=== PATIENT | female | born 1975 | race Caucasian/White ===

== ENCOUNTER 2016-07-15 19:11 | Emergency (ER) | payer OTHER ==
[2016-07-15] MEDS ORDERED: Ketorolac INJ* 60 MG/2 ML VIAL IV PUSH ONE (22:19)
[2016-07-15] MEDS ORDERED: diPHENhydraMINE IV* 50 MG in NS 0.9% 50 ML* 50 ML IVPB ONE (22:20)
[2016-07-15] MEDS ORDERED: PROCHLORPERAZINE INJ 5 MG/ML 2 ML VIAL IV PRN (22:20)
[2016-07-15] MEDS ORDERED: NS 0.9% 1000 ML* 1,000 ML IV ONE (22:21)
--- NOTE | 2016-07-15 22:55 | ED ---
Headache - HPI Summary HPI Summary: Patient here with a 2 day history of migraine with aura and photophobia. PMHx of migraines (some with aura, some without), denies nuchal rigidity, denies sudden onset, not worst of life, no trauma. She states she took her triptan this morning with no alleviation of symptoms. Pain is 8/10 and is constant. Patient notes to scintillating scotoma all day yesterday and today. C/o accompanying nausea with no vomiting. Pain is diffuse, similar to her previous migraines. denies fever, denies blurry vision or double vision. - History Of Current Complaint Chief Complaint: EDHeadache Stated Complaint: MIGRAINE Hx Obtained From: Patient Onset/Duration: Gradual Onset, Started days ago - 2 days ago Initially Headache Was: Moderate Currently Pain Is: Current Pain Scale(0-10)= - 8, Moderate Timing: Constant Character: Throbbing Location of Headache: Frontal Aggravating Factor: Nothing Allevating Factors: Nothing Associated Signs And Symptoms: Nausea - Risk Factors SAH Risk Factors: Negative Meningitis Risk Factors: Negative SDH Risk Factors: Negative Temporal Arteritis Risk Factors: Negative - Allergies/Home Medications Allergies/Adverse Reactions: Allergies Allergy/AdvReac Type Severity Reaction Status Date / Time No Known Allergies Allergy Verified 07/15/16 19:45 PMH/Surg Hx/FS Hx/Imm Hx Previously Healthy: Yes Infectious Disease History: No Infectious Disease History: Denies: Traveled Outside the [place] in Last 30 Days - Social History Occupation: Employed Full-time Lives: With Family Hx Substance Use: No Substance Use Type: Reports: None Hx Tobacco Use: No Smoking Status (MU): Never Smoked Tobacco Review of Systems - ROS Summary Review of Systems Summary: Constitutional: The patient denies fever, CONTE. HEENT: ~Head: Patient complains of migraine. scintillating scotoma Eyes: ~The patient denies diplopia, blurry vision. positive for photophobia Cardiovascular: ~The patient denies chest pain, palpitations, syncope, night cramps, or orthostasis. ~ Respiratory: ~The patient denies cough, sputum production, hemoptysis, dyspnea, wheezing. ~ Gastrointestinal: ~ The patient denies odynophagia, abd pain. Positive for nausea. Muscles: The patient denies myalgia, strain or weakness. ~ Joints: ~The patient denies arthralgia and/or arthritis. ~ Neurologic: ~The patient denies loss of consciousness, or seizure. Dermatologic: ~The patient denies hyperpigmentation, rash, or photosensitivity. All Other Systems Reviewed And Are Negative: Yes Physical Exam - Summary Physical Exam Summary: Appearance: WDW, in pain distress Skin: Soft dry skin, no lesions. Nailbeds pink with no cyanosis or clubbing. Eyes: LORENA, EOMI, Conjunctiva pink with no redness or exudates. Mouth: Dentition without lesions. Moist mucosa Neck: Full range of motion. Thyroid not palpable. Trachea at midline. No lymphadenopathy. Pulm: Chest symmetrical expansion. No deformities on posterior chest wall. Lungs clear to auscultation and percussion, without adventitious sounds. CV: No JVD. No deformities on anterior chest wall. Heart sounds-RRR, Normal S1 and single S2. No S3, S4, rubs, or murmurs. Carotids 2+ bilaterally without bruits. . Abd: No scars, inspection unremarkable. Bowel sounds normoactive. Musculoskeletal: Full range of motion. No deformities noted. Pulses full and equal. No calf tenderness Neuro: Motor strength is 5/5 in upper and lower extremities bilaterally. A&OX3 Psych: Logical, coherent Triage Information Reviewed: Yes Vital Signs On Initial Exam: Initial Vitals Temp Pulse Resp BP Pulse Ox 99.1 F 85 18 105/67 100 07/15/16 19:43 07/15/16 19:43 07/15/16 19:43 07/15/16 19:43 07/15/16 19:43 Vital Signs Reviewed: Yes Appearance: Positive: Well-Appearing, No Pain Distress, Well-Nourished Diagnostics - Vital Signs Vital Signs Temp Pulse Resp BP Pulse Ox 07/15/16 19:43 99.1 F 85 18 105/67 100 - Laboratory Lab Statement: Any lab studies that have been ordered have been reviewed, and results considered in the medical decision making process. Headache Course/Dx - Course Course Of Treatment: Patient was assessed. Physical exam performed. 1 L given. Compazine, benadryl and toradol given. patient reassessed with improvement of symptoms. migraine similiar to previous migraines. not sudden in onset, not worst of life, not different than other CONTE, no visual symptoms. low suspician for SAH. follow up with PCP for recurrent migraines as needed. Return precautions given. Assessment/Plan: Follow up with PCP. Script sent to pharmacy. - Diagnoses Differential Diagnosis/HQI/PQRI: Migraine, Sinus Headache, Tension Headache Provider Diagnoses: Migraine Is Visit Related: No - Physician Notifications Instructed by Provider To: Have Pt Call For Appt. Admit/Transition Orders Completed By ED Provider: No Discharge - Discharge Plan Condition: Stable Disposition: HOME Prescriptions: Ketorolac TAB (NF) [Toradol TAB (NF)] 10 mg PO Q6H #20 tab MDD 4 Prochlorperazine TAB* [Compazine Tab*] 10 mg PO Q6H PRN #10 tab MDD 40 PRN Reason: Nausea Patient Education Materials: Migraine Headache (ED) Referrals: Abigail Pa MD [Primary Care Provider] - Additional Instructions: Follow up with PCP. Script sent to pharmacy. Come back to ED if symptoms fail to improve or worsen, vomiting occurs or fever develops. Take home medications at first onset of migraine. If this regimen fails to abort the migraine, you may try: compazine 10mg, 800mg ibuprofen and 50mg benadryl
[2016-07-15] MEDS ORDERED: Prochlorperazine TAB* 10 MG PO ONE (23:41)
[2016-07-15 23:53] VITALS: BP 103/52
== END 2016-07-15 23:52 | disposition home or self-care (01) ==
LOC: ED 19:11
DX: G43.909 Migraine, unspecified, not intractable, without status migrainosus (principal); H53.149 Visual discomfort, unspecified
CPT/HCPCS: 96365; 96374; 96375; 99282; J0780; J1200; J1885; Q0164

== ENCOUNTER 2018-04-18 22:33 | Inpatient (IN) | payer OTHER ==
[2018-04-18] MEDS ORDERED: NS 0.9% 1000 ML* 1,000 ML IV ONE (23:21)
[2018-04-18] MEDS ORDERED: Ketorolac INJ* 30 MG/ML 1 ML VIAL IV PUSH ONE (23:24)
--- NOTE | 2018-04-18 23:26 | ED ---
Shortness of Breath - HPI Summary HPI Summary: This patient is a 43 year old F presenting to [facility] with a chief complaint of SOB since 07:00 today. The patient rates the pain 7/10 in severity. Patient reports cough, aching joint pain, and headache. Patient denies fever. She has been driving all day. She has no PMHx of asthma and does not smoke cigarettes. - History of Current Complaint Chief Complaint: EDUpperRespComplaint Time Seen by Provider: 04/18/18 23:11 Hx Obtained From: Patient Onset/Duration: Lasting Hours - 07:00 this morning, Still Present Associated Signs & Symptoms: Cough (Nonproductive), Fever - Denies - Allergy/Home Medications Allergies/Adverse Reactions: Allergies Allergy/AdvReac Type Severity Reaction Status Date / Time No Known Allergies Allergy Verified 04/18/18 22:40 Home Medications: Home Medications Eletriptan HBr 20 mg PO ONCE PRN 04/19/18 [History Confirmed 04/19/18] Lifitegrast [Xiidra] 1 drop BOTH EYES BID 04/19/18 [History Confirmed 04/19/18] Liothyronine TAB* [Cytomel TAB*] 5 mcg PO DAILY 04/19/18 [History Confirmed 02/27] Montelukast Sodium TAB* [Singulair 5 mg TAB*] 1 tab PO DAILY 04/19/18 [History Confirmed 04/19/18] Naproxen 500 mg tab 1 tab PO ONCE PRN 04/19/18 [History Confirmed 04/19/18] PMH/Surg Hx/FS Hx/Imm Hx Endocrine/Hematology History: Reports: Hx Thyroid Disease - Hypothyroidism Respiratory History: Denies: Hx Asthma Neurological History: Reports: Hx Migraine - Immunization History Date of Tetanus Vaccine: utd Date of Influenza Vaccine: none Infectious Disease History: No Infectious Disease History: Denies: Traveled Outside the [place] in Last 30 Days - Family History Known Family History: Positive: Hypertension, Diabetes - Social History Occupation: Employed Full-time Lives: With Family Alcohol Use: Occasionally Hx Substance Use: No Substance Use Type: Reports: None Hx Tobacco Use: No Smoking Status (MU): Never Smoked Tobacco Review of Systems Negative: Fever Positive: Shortness Of Breath, Cough Positive: Other - "aching joint pain" Positive: Headache All Other Systems Reviewed And Are Negative: Yes Physical Exam - Summary Physical Exam Summary: VITAL SIGNS: Reviewed. GENERAL: Patient is a well-developed and nourished FEMALE who is lying comfortable in the stretcher. Patient is not in any acute respiratory distress. HEAD AND FACE: No signs of trauma. No ecchymosis, hematomas or skull depressions. No sinus tenderness. EYES: PERRLA, EOMI x 2, No injected conjunctiva, no nystagmus. EARS: Hearing grossly intact. Ear canals and tympanic membranes are within normal limits. MOUTH: Oropharynx within normal limits. NECK: Supple, trachea is midline, no adenopathy, no JVD, no carotid bruit, no c- spine tenderness, neck with full ROM. CHEST: Symmetric, no tenderness at palpation LUNGS: Decreased breath sounds over right base. No wheezing or crackles. CVS: Regular rate and rhythm, S1 and S2 present, no murmurs or gallops appreciated. ABDOMEN: Soft, non-tender. No signs of distention. No rebound no guarding, and no masses palpated. Bowel sounds are normal. EXTREMITIES: FROM in all major joints, no edema, no cyanosis or clubbing. NEURO: Alert and oriented x 3. No acute neurological deficits. Speech is normal and follows commands. SKIN: Dry and warm Triage Information Reviewed: Yes Vital Signs On Initial Exam: Initial Vitals Temp Pulse Resp BP Pulse Ox 98.8 F 100 20 105/60 93 04/18/18 22:35 04/18/18 22:35 04/18/18 22:35 04/18/18 22:35 04/18/18 22:35 Vital Signs Reviewed: Yes Diagnostics - Vital Signs Vital Signs Temp Pulse Resp BP Pulse Ox 04/18/18 22:35 98.8 F 100 20 105/60 93 - Laboratory Result Diagrams: 04/19/18 00:02 04/19/18 00:02 Lab Statement: Any lab studies that have been ordered have been reviewed, and results considered in the medical decision making process. - Radiology Chest X-Ray Radiology Interpretation Completed By: ED Physician - Read 00:40. Bilateral interstitial infiltrate, bilateral perfusion (right more than left), all consistent with CHF. Pending official report. - EKG 23:38 Cardiac Rate: NL - 87 BPM EKG Rhythm: Sinus Rhythm ST Segment: Normal EKG Interpretation: Normal axis. Normal interval. No ischemic changes. Course/Dx - Course Course Of Treatment: This patient is a 43 year old F presenting to [facility] with a chief complaint of SOB since 07:00 today. The patient rates the pain 7/10 in severity. Patient reports cough, aching joint pain, and headache. Patient denies fever. She has been driving all day. She has no PMHx of asthma and does not smoke cigarettes. Chest X-Ray showed: Bilateral interstitial infiltrate, bilateral perfusion (right more than left), all consistent with CHF. EKG was normal. Patient dx with CHF and will be admitted by Dr. Kate García, hospitalist. - Diagnoses Provider Diagnoses: CHF (congestive heart failure) - Physician Notifications Discussed Care of Patient With: Kate García - Hospitalist Time Discussed With Above Provider: 01:34 Instructed by Provider To: Admit As Inpatient Discharge - Sign-Out/Discharge Documenting (check all that apply): Patient Departure - Admit - Discharge Plan Condition: Stable Disposition: ADMITTED TO [facility] Referrals: Abigail Pa MD [Primary Care Provider] - - Attestation Statements Document Initiated by Scribe: Yes Documenting Scribe: Elie Choudhary Provider For Whom Scribe is Documenting (Include Credential): Rebecca Alvarez MD Scribe Attestation: Elie Nuñez, scrgustavo for Rebecca Alvarez MD on 04/19/18 at 0134.
[2018-04-19 00:14] LABS: ABS Basophils 0 10^3/ul (0-0.2); ABS Eosinophils 0.1 10^3/ul (0-0.6); ABS Lymphocytes 0.6 10^3/ul (1.0-4.8); ABS Monocytes 0.5 10^3/ul (0-0.8); ABS Neutrophils 9.2 10^3/ul (1.5-7.7); ABS Nucleated RBC 0 10^3/ul; Eosinophil % 0.5 % (0-6); Hematocrit 36 % (35-47); Hemoglobin 11.8 g/dl (12.0-16.0); Lymphocyte % 5.8 % (25-47); Mean Corpuscular HGB Conc 33 g/dl (31-36); Mean Corpuscular Hemoglobin 30 pg (27-31); Mean Corpuscular Volume 93 fL (80-97); Mean Platelet Volume 9.5 um3 (7.4-10.4); Nucleated Red Blood Cells % 0; Platelet Count 137 10^3/ul (150-450); Red Blood Count 3.89 10^6/ul (4.00-5.40); Red Cell Distribution Width 14 % (10.5-15); White Blood Count 10.4 10^3/ul (3.5-10.8)
[2018-04-19] MEDS ORDERED: Furosemide IV* 10 MG/ML 2 ML VIAL (20 MG) IV SLOW PU ONE ×2 (00:23→12:43)
[2018-04-19 00:32] LABS: EGFR Non-African American 100.3 (>60)
[2018-04-19 00:41] LABS: INR 1.02 (0.77-1.02)
[2018-04-19] MEDS ORDERED: Naproxen TAB* 250 MG PO PRN (02:11)
[2018-04-19] MEDS ORDERED: ELETRIPTAN HBR 20 MG PO PRN (02:11)
[2018-04-19] MEDS ORDERED: Prochlorperazine TAB* 10 MG PO PRN (02:11)
[2018-04-19] MEDS ORDERED: NAPROXEN 500 MG PO PRN (02:11)
[2018-04-19] MEDS ORDERED: SUMAtriptan SQ* 6 MG/0.5 ML VIAL SUBCUT ONE (03:45)
[2018-04-19 06:25] LABS: EGFR Non-African American 106.1 (>60)
[2018-04-19] MEDS ORDERED: NS 0.9% 1000 ML* 1,000 ML IV SCH (07:45)
[2018-04-19] MEDS: Acetaminophen TAB* 325 MG PO PRN ×3 (08:03→17:53)
[2018-04-19] MEDS ORDERED: Acetaminophen TAB* 325 MG PO ONE (08:03)
[2018-04-19] MEDS ORDERED: PROCHLORPERAZINE INJ 5 MG/ML 2 ML VIAL IV PRN (08:05)
[2018-04-19] MEDS ORDERED: Albuterol 2.5 MG/3 ML NEB.SOL* (0.083%) INH PRN (08:06)
--- NOTE | 2018-04-19 08:06 | RAD ---
Indication: Shortness of breath, myalgias. Comparison: No relevant prior exams available on the [facility]. Technique: Upright AP 0010 hours Report: Upper normal heart size. Prominent ill-defined central pulmonary vasculature with perihilar opacities and diffuse prominence of the interstitial markings with subtle thickened peripheral interlobular septa. Moderate RIGHT and small LEFT dependent pleural effusions with proportional basilar atelectasis. Negative for pneumothorax. IMPRESSION: #. The constellation of findings is most consistent with pulmonary edema. R0
--- NOTE | 2018-04-19 10:19 | HP ---
CC: Abigail Pa MD * HISTORY AND PHYSICAL: DATE OF ADMISSION: 04/19/18 TIME OF EVALUATION: 7:40 a.m. PRIMARY CARE PROVIDER: Abigail Pa MD CHIEF COMPLAINT: Shortness of breath. HISTORY OF PRESENT ILLNESS: Mrs. Bingham is a 43-year-old lady with a past medical history of hypothyroidism and migraines who presented to the emergency room with complaints of shortness of breath and body aches. The patient states that she was feeling well a couple of days ago. She went with her to [facility], they were walking around and she had some shortness of breath while walking around. This was followed by chills and body aches. She went back to the hotel, took some [id number] medication and felt initially a little better but as the day went by, she continued to feel poorly. They returned to [place] and the patient states that 1 hour after her return, she stated that she felt worse, so she came to the emergency room for further evaluation. While in the ED, the patient was noted to be tachycardic and also developed a fever. She continues to have respiratory symptoms. She denies chest pain, palpitations, nausea, vomiting, urinary or bowel symptoms. The patient denies sick contacts. She did not receive her flu vaccine yet this season. PAST MEDICAL HISTORY: 1. Hypothyroidism. 2. Migraine. MEDICATIONS: 1. Eletriptan 10 mg p.o. once as needed for migraines. 2. Lifitegrast 1 drop to both eyes b.i.d. 3. Cytomel 5 mcg p.o. daily. 4. Singulair 5 mg p.o. daily. 5. Naproxen 500 mg p.o. daily as needed for migraine. 6. Compazine 10 mg p.o. q.6 hours p.r.n. nausea and vomiting. ALLERGIES: No known drug allergies. FAMILY HISTORY: Father has hypertension, grandmother had heart disease. SOCIAL HISTORY: There is no history of tobacco, alcohol or drug use. 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 REVIEW OF SYSTEMS: A 14-point review of systems was performed and all the pertinent negatives were found in the HPI. PHYSICAL EXAMINATION GENERAL: The patient is a pleasant lady sitting up in the ED stretcher, appears to be uncomfortable. VITAL SIGNS: Temperature 102.6, heart rate is 120, respiratory rate is 35, oxygen saturation is 94% on 2 L, blood pressure is 113/66. CHEST: Breath sounds bilaterally coarse, decreased in the right base. CVS: Normal S1, S2. Regular rate and rhythm. ABDOMEN: Soft. Bowel sounds are present. EXTREMITIES: No edema. NEUROLOGIC: She is alert and oriented x3. Able to move all 4 extremities. LABORATORY AND IMAGING DATA: The patient had a CBC that showed WBC of 10.4, hemoglobin of 11.8, hematocrit 36, platelets of 137,000 with 88% neutrophils. INR is 1.02. D-dimer is 410. Chemistry showed sodium of 131, potassium of 3.7 , chloride of 101, bicarb of 21, BUN of 9, creatinine of 0.6, glucose of 108, lactic acid of 1, calcium of 8.7. LFTs are normal. CRP 64. Troponin is 0.03. BNP 566. Chest x-ray not officially read but the patient has bilateral pleural effusions right greater than left. EKG done on 04/18/18 at 2338 showed sinus rhythm at 87 beats per minute with left atrial enlargement. No ST-T changes. RSR pattern in V1, new when compared to her prior EKG from 2016. ASSESSMENT/PLAN: Mrs. Bingham is a 43-year-old female with past medical history of hypothyroidism and migraines who presented to the emergency room with complaints of shortness of breath, found to have sepsis secondary to probable influenza. 1. Sepsis. The patient's presentation is compatible with sepsis with fever, tachypnea and tachycardia. Considering the sudden onset of her symptoms and rapid progression, I suspect the patient likely has influenza. 2. Probable influenza. The patient will be started empirically on Tamiflu and she will receive symptomatic treatment. At this point, she requires IV fluids and have had increased oxygen needs. I am going to change her admission order to the intensive care unit, so she can be close monitored and she may need Vapotherm to decrease her work of breathing. Influenza rapid test was ordered and is pending at the time of this dictation. 3. Hypothyroidism. Will continue Cytomel. 4. Migraines. Will continue triptans as needed. 5. DVT prophylaxis: The patient has a score of 3 on the DVT prophylaxis risk assessment guide and she will be started on subcutaneous heparin. 6. Code status is full. TIME SPENT: Approximately 50 minutes were spent with patient interview, medical records review, physical examination to complete this admission, more than half of this time was spent [id number] with the patient and coordination of care. [id number]/CPS #: [id number] MTDD
--- NOTE | 2018-04-19 10:33 | ECHO ---
Patient: [facility] Rec#: [id number] : 1975 Date: 04/19/2018 Age: 43y Height: 165.1 cm / 65.0 in Weight: 49.9 kg / 110.0 lbs Sex: F BSA: 1.53 Room#: [facility] Admit Date#: 04/19/2018 Type: Inpatient Referring: Estephania Hinds MD Reading: Roger Jimenez MD Data Warehouse Manager: Abbey Evans GAY CC: Abigail Pa MD Transthoracic Echocardiogram Indication: Dyspnea/ Pericardial effusion BP: 111/73 HR: 100 Rhythm: Tachycardia Findings History: Hypothyroidism. Technical Comments: The study is technically difficult. Study done with HOB at 90 degrees and a slight turn to the left. Completed at 1012. Left Ventricle: The left ventricular chamber size is decreased. Global left ventricular wall motion and contractility are within normal limits. There is normal left ventricular systolic function. The estimated ejection fraction is 55-60%. Abnormal left ventricular diastolic function is observed. Left Atrium: The left atrium is moderately dilated. Right Ventricle: The right ventricle is mildly dilated. The right ventricular global systolic function is mildly to moderately reduced. Right Atrium: The right atrial cavity size is normal. Aortic Valve: The aortic valve is trileaflet. There is no evidence of aortic regurgitation. There is no evidence of aortic stenosis. Mitral Valve: The mitral valve leaflets appear rheumatic. The mitral valve leaflets are mildly thickened. Mitral valve leaflet mobility is moderately restricted. There is systolic bowing of the mitral valve without evidence of prolapse. There is no evidence of mitral regurgitation. There is moderate to severe mitral stenosis. Tricuspid Valve: The tricuspid valve leaflets are normal. There is moderate tricuspid regurgitation. The tricuspid regurgitant jet is wall impinging. The right ventricular systolic pressure is estimated to be 85-90 mmHg. There is evidence of severe pulmonary hypertension. There is no tricuspid stenosis. Pulmonic Valve: There is trace to mild pulmonic regurgitation. There is no pulmonic stenosis. Pericardium: A trivial pericardial effusion is visualized. There are no signs of significant hemodynamic compromise. There is a circumferential pericardial effusion. A bilateral pleural effusion is present. There is a large pleural effusion. Aorta: There is no dilatation of the ascending aorta. There is no dilatation of the aortic arch. There is no dilation of the aortic root. Pulmonary Artery: The main pulmonary artery appears normal. Venous: The inferior vena cava is dilated. There is a greater than 50% respiratory change in the inferior vena cava dimension. Summary: There was not any prior study for comparison. Conclusions Global left ventricular wall motion and contractility are within normal limits. There is normal left ventricular systolic function. The estimated ejection fraction is 55-60%. The right ventricle is mildly dilated. The right ventricular global systolic function is mildly to moderately reduced. There is no evidence of aortic stenosis. There is systolic bowing of the mitral valve without evidence of prolapse. The mitral valve leaflets appear rheumatic. Mitral valve leaflet mobility is moderately restricted. There is systolic bowing of the mitral valve without evidence of prolapse. There is moderate to severe mitral stenosis. There is no evidence of mitral regurgitation. There is moderate tricuspid regurgitation. There is evidence of severe pulmonary hypertension. The right ventricular systolic pressure is estimated to be 85-90 mmHg. A trivial pericardial effusion is visualized. There are no signs of significant hemodynamic compromise. A bilateral pleural effusion is present. Asites is present Measurements Name Value Normal Range RVIDd (AP) 2D 2.7 cm (0.9 - 2.6) RVDdMajor (2D) 4.5 cm (2.2 - 4.4) RAd ISD 4CH 4.2 cm (3.4 - 4.9) RA (A4C)W 4.3 cm (2.9 - 4.6) IVSd (2D) 0.9 cm (0.6 - 1) LVPWd (2D) 0.6 cm (0.6 - 1) LVIDd (2D) 3.2 cm (3.6 - 5.4) LVIDs (2D) 23 cm - LV FS (2D) 29 % (25 - 45) Aortic Annulus 1.5 cm (1.4 - 2.6) Ao root diameter (2D) 3 cm (2.1 - 3.5) Ascending Ao 2.8 cm (2.1 - 3.4) Aortic arch 2 cm (1.8 - 3.4) Descending Ao 0.6 cm - LA dimension (AP) 2D 4.4 cm (2.3 - 3.8) LAd ISD 4CH 6.3 cm (2.9 - 5.3) LA ISD 4CH W 4.9 cm (2.5 - 4.5) Name Value Normal Range LA ESV SP 4CH (A/L) 91 ml - LA ESV SP 2CH (A/L) 83 ml - LA ESV BP (A/L) 87 ml - LA ESV BP (A/L) index 56.71 ml/m2 - LA ESV SP 4CH (MOD) 84 ml - LA ESV SP 2CH (MOD) 80 ml - Name Value Normal Range MV E-wave Vmax 3 m/sec - MV deceleration time 201 msec - MV A-wave Vmax 3 m/sec - MV E:A ratio 1 ratio - LV septal e' Vmax 0.04 m/sec - LV lateral e' Vmax 0.04 m/sec - LV E:e' septal ratio 75 ratio - LV E:e' lateral ratio 75 ratio - Name Value Normal Range AV Vmax 1.3 m/sec - AV VTI 20 cm - AV peak gradient 6.25 mmHg - AV mean gradient 2.89 mmHg - LVOT diameter 1.7 cm - LVOT Vmax 1.2 m/sec - LVOT VTI 20.3 cm - LVOT peak gradient 5.62 mmHg - LVOT mean gradient 2.35 mmHg - Name Value Normal Range MV Vmax 3.5 m/sec - MV VTI 94 cm - MV peak gradient 47.7 mmHg - MV mean gradient 28 mmHg - MV PHT 54 msec - MVA (PHT) 4 cm2 - MVA (continuity VTI) 0.5 cm2 - Name Value Normal Range TR Vmax 4.4 m/sec - TR peak gradient 78 mmHg - RAP 8 mmHg - RVSP 86 mmHg - IVC diameter 2.2 cm - Name Value Normal Range PV Vmax 0.9 m/sec - PV peak gradient 3.4 mmHg -
[2018-04-19] MEDS: Heparin VIAL(*) 5000 UNITS/ML VIAL (FIVE THOUSAND) SUBCUT SCH ×3 (10:47→22:03)
[2018-04-19] MEDS: Lifitegrast [Xiidra] 1 DROP BOTH EYES SCH ×2 (10:52→22:04)
[2018-04-19] MEDS: Liothyronine TAB* 5 MCG PO SCH (11:05)
[2018-04-19] MEDS: Oseltamivir CAP* 75 MG CAP PO SCH ×2 (11:05→22:04)
[2018-04-19] MEDS: Montelukast Sodium TAB* 5 MG PO SCH (11:05)
[2018-04-19] MEDS ORDERED: Iodixanol* (CONTRAST) 320 MG/ML 100 ML SDV IV ONE (11:06)
--- NOTE | 2018-04-19 11:56 | RAD ---
HISTORY: Dyspnea, r/o PE. COMPARISONS: None TECHNIQUE: Multiple contiguous axial CT scans of the chest were obtained after the administration of nonionic intravenous contrast, timed to the pulmonary arterial phase of contrast enhancement.. Coronal and sagittal multiplanar reformations are also submitted for review. FINDINGS: NECK AND THYROID: The lower neck and thyroid are unremarkable. CHEST WALL: There is no lower cervical, axillary, or supraclavicular lymphadenopathy by size criteria. HEART AND PERICARDIUM: The heart is unremarkable. AORTA AND PULMONARY VASCULATURE: There is no pulmonary arterial filling defect to suggest pulmonary embolism. There is no linear filling defect within the aorta to suggest aortic dissection. MEDIASTINUM: There is no mediastinal lymphadenopathy by size criteria. NIYA: There is no hilar lymphadenopathy by size criteria. AIRWAY AND ESOPHAGUS: The airway is unremarkable, without endobronchial filling defect. The esophagus is grossly normal. LUNG PARENCHYMA: There is multifocal ground glass opacification and consolidation throughout both lungs. There is mixed compressive atelectasis and consolidation of the right lower lobe. There is compressive atelectasis of the left lower lobe. There is interlobular septal thickening along the lung apices bilaterally. PLEURA: There are large bilateral pleural effusions. UPPER ABDOMEN: The upper abdomen is unremarkable. BONES AND SOFT TISSUES: Mild degenerative changes are noted. OTHER: None. IMPRESSION: 1. LARGE BILATERAL PLEURAL EFFUSIONS WITH MULTIFOCAL AIRSPACE DISEASE THROUGHOUT BOTH LUNGS. 2. MILD PULMONARY INTERSTITIAL EDEMA. 3. NO PULMONARY ARTERIAL FILLING DEFECT TO SUGGEST PULMONARY EMBOLISM.
[2018-04-19] MEDS: Ibuprofen TAB* 600 MG PO PRN (13:06)
[2018-04-19] MEDS: Levofloxacin 750 MG IVPREMIX(* 750 MG/150 ML BAG IVPB SCH (13:55)
--- NOTE | 2018-04-19 14:43 | CONSULT ---
Consult Consult: PCCM Consult CC: Shortness of breath HPI: 43F with hypothyroid, migraines presents with shortness of breath. The patient was recently in [place] and she began to have bodyaches. She first noticed her symptoms when walking around. She took other counter medications and felt slightly better but then became felt worse. She ccame back to [place] and came to the ER where she had a chest xray which showed bilateral pleural effusions and pulmonary edema. She was also febrile. TTE was done showing mitral stenosis with pulmonary hypertension. CTA chest did not show any PE but did show multifocal airspace opacities. She was started on Abx and lasix. She reports dry cough. 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 FamHx - htn ROS - as per HPI PE Vital Signs: Temp Pulse Resp BP Pulse Ox 101.4 F 103 25 93/61 96 04/19/18 12:47 04/19/18 14:00 04/19/18 14:00 04/19/18 14:00 04/19/18 14:00 Gen - Acutely ill HEENT - ncat, eomi, perrl Neck - mild jvd CV - s1/s2, +murmur, tachy Lungs - dec bs bilaterally ABd - soft, nt, nd Ext - no edema Neuro - non-focal Labs Laboratory Results - last 24 hr 04/19/18 04/19/18 04/19/18 00:02 00:02 00:02 WBC 10.4 RBC 3.89 L Hgb 11.8 L Hct 36 MCV 93 MCH 30 MCHC 33 RDW 14 Plt Count 137 L MPV 9.5 Neut % (Auto) 88.7 H Lymph % (Auto) 5.8 L [place] % (Auto) 4.7 Eos % (Auto) 0.5 Baso % (Auto) 0.3 Absolute Neuts (auto) 9.2 H Absolute Lymphs (auto) 0.6 L Absolute Monos (auto) 0.5 Absolute Eos (auto) 0.1 Absolute Basos (auto) 0 Absolute Nucleated RBC 0 Nucleated RBC % 0 INR (Anticoag Therapy) 1.02 APTT D-Dimer, Quantitative 410 H Sodium 131 L Potassium 3.7 Chloride 101 Carbon Dioxide 21 L Anion Gap 9 BUN 9 Creatinine 0.64 Est GFR ( Amer) 121.4 Est GFR (Non-Af Amer) 100.3 BUN/Creatinine Ratio 14.1 Glucose 108 H Lactic Acid Calcium 8.7 Total Bilirubin 0.80 AST 24 ALT 36 Alkaline Phosphatase 75 Total Creatine Kinase 64 Troponin I 0.03 C-Reactive Protein 64.44 H B-Natriuretic Peptide Total Protein 6.8 Albumin 4.0 Globulin 2.8 Albumin/Globulin Ratio 1.4 Beta HCG, Quant < 0.60 Influenza A (Rapid) Influenza B (Rapid) 04/19/18 04/19/18 04/19/18 00:02 00:02 00:02 WBC RBC Hgb Hct MCV MCH MCHC RDW Plt Count MPV Neut % (Auto) Lymph % (Auto) [place] % (Auto) Eos % (Auto) Baso % (Auto) Absolute Neuts (auto) Absolute Lymphs (auto) Absolute Monos (auto) Absolute Eos (auto) Absolute Basos (auto) Absolute Nucleated RBC Nucleated RBC % INR (Anticoag Therapy) APTT 31.7 D-Dimer, Quantitative Sodium Potassium Chloride Carbon Dioxide Anion Gap BUN Creatinine Est GFR ( Amer) Est GFR (Non-Af Amer) BUN/Creatinine Ratio Glucose Lactic Acid 1.0 Calcium Total Bilirubin AST ALT Alkaline Phosphatase Total Creatine Kinase Troponin I C-Reactive Protein B-Natriuretic Peptide 566 H Total Protein Albumin Globulin Albumin/Globulin Ratio Beta HCG, Quant Influenza A (Rapid) Influenza B (Rapid) 04/19/18 04/19/18 04/19/18 05:53 07:53 08:15 WBC RBC Hgb Hct MCV MCH MCHC RDW Plt Count MPV Neut % (Auto) Lymph % (Auto) [place] % (Auto) Eos % (Auto) Baso % (Auto) Absolute Neuts (auto) Absolute Lymphs (auto) Absolute Monos (auto) Absolute Eos (auto) Absolute Basos (auto) Absolute Nucleated RBC Nucleated RBC % INR (Anticoag Therapy) APTT D-Dimer, Quantitative Sodium 136 Potassium 3.6 Chloride 104 Carbon Dioxide 24 Anion Gap 8 BUN 8 Creatinine 0.61 Est GFR ( Amer) 128.3 Est GFR (Non-Af Amer) 106.1 BUN/Creatinine Ratio 13.1 Glucose 102 H Lactic Acid 0.9 Calcium 8.7 Total Bilirubin AST ALT Alkaline Phosphatase Total Creatine Kinase Troponin I C-Reactive Protein B-Natriuretic Peptide Total Protein Albumin Globulin Albumin/Globulin Ratio Beta HCG, Quant Influenza A (Rapid) Negative Influenza B (Rapid) Negative Imaging CXR 04/19 IMPRESSION: #. The constellation of findings is most consistent with pulmonary edema. CTA Chest 04/19 1. LARGE BILATERAL PLEURAL EFFUSIONS WITH MULTIFOCAL AIRSPACE DISEASE THROUGHOUT BOTH LUNGS. 2. MILD PULMONARY INTERSTITIAL EDEMA. 3. NO PULMONARY ARTERIAL FILLING DEFECT TO SUGGEST PULMONARY EMBOLISM TTE 04/19 Conclusions Global left ventricular wall motion and contractility are within normal limits. There is normal left ventricular systolic function. The estimated ejection fraction is 55-60%. The right ventricle is mildly dilated. The right ventricular global systolic function is mildly to moderatelyreduced. There is no evidence of aortic stenosis. There is systolic bowing of the mitral valve without evidence ofprolapse. The mitral valve leaflets appear rheumatic. Mitral valve leaflet mobility is moderately restricted. There is systolic bowing of the mitral valve without evidence ofprolapse. There is moderate to severe mitral stenosis. There is no evidence of mitral regurgitation. There is moderate tricuspid regurgitation. There is evidence of severe pulmonary hypertension. The right ventricular systolic pressure is estimated to be 85-90 mmHg. A trivial pericardial effusion is visualized. There are no signs of significant hemodynamic compromise. A bilateral pleural effusion is present. Asites is present Impression 43F with hypothyroid, migraines presents with dyspnea 2/2 CHF 2/2 mitral stenosis in the setting of community acquired pneumonia Plan Neuro - migraines - triptan prn CV - hypotension, chf, mitral stenosis - hypotension 2/2 sepsis, however, runs low at baseline - diuresis as bp tolerates for chf - picc line placement for possible pressors - will need to follow up outpatient for mitral valve Pulm - acute hypoxic respiratory failure - 2/2 pna and chf - supplemental o2 - abx and lasix ID - sepsis 2/2 CAP - check blood cultures - check urine legionella/pneumococcal ag - levaquin - lactate normal - rapid flu neg, pcr pending GI - diet as tolerated Renal - monitor lytes - monitor i/o Heme - monitor cbc Endo - hypothyroid - check tsh, ft4 - c/w thyroid replacement Lines - picc placement today PPx - gi/dvt Full Code Critical Care Time: 55 mins
--- NOTE | 2018-04-19 16:37 | PN ---
Sepsis Event Evaluation Date of Evaluation: 04/19/18 Time of Evaluation: 16:35 Current Stage of Sepsis: Septic Shock Vital Signs - Last 12 Hours: Vital Signs - 12 hr Temp Pulse Resp BP Pulse Ox 04/19/18 15:52 24 04/19/18 15:30 94 23 85/53 98 04/19/18 15:00 94 22 102/64 98 04/19/18 14:51 22 04/19/18 14:30 101 25 101/59 96 04/19/18 14:00 103 32 93/61 96 04/19/18 13:30 104 26 105/60 95 04/19/18 13:00 112 42 108/68 95 04/19/18 12:47 101.4 F 04/19/18 12:44 101.4 F 04/19/18 12:00 108 28 106/67 94 04/19/18 11:58 107 39 113/62 98 04/19/18 11:15 104 27 108/69 98 04/19/18 11:00 102 27 106/59 97 04/19/18 10:45 101 26 104/56 96 04/19/18 10:30 103 23 99/67 98 04/19/18 10:15 101 28 105/64 98 04/19/18 10:00 105 25 96/61 98 04/19/18 09:45 108 29 95/63 95 04/19/18 09:30 100 21 108/58 95 04/19/18 09:15 102 25 99/59 94 04/19/18 09:03 99.7 F 107 32 98/58 95 04/19/18 09:02 99.7 F 04/19/18 09:00 105 34 98/58 94 04/19/18 08:56 107 33 100/51 93 04/19/18 08:30 111 29 111/73 91 04/19/18 08:29 86 04/19/18 08:22 27 88 04/19/18 08:00 116 25 105/57 91 04/19/18 07:30 117 33 113/66 94 04/19/18 07:22 102.6 F 114 34 98/75 93 04/19/18 07:00 119 35 98/75 92 04/19/18 06:30 112 33 115/68 93 04/19/18 06:00 113 21 106/69 85 04/19/18 05:30 108 26 122/70 95 04/19/18 05:01 102 25 93 04/19/18 05:00 104 29 107/64 93 Lactic Acid: 04/19/18 04/19/18 00:02 08:15 Lactic Acid 1.0 0.9 Exceptions to Standard of Care: acute congestive heartfailure. no iv fluids. - Cardiopulmonary Exam Capillary Refill: < or = to 5 seconds Respiratory: Symmetrical Chest Expansion and Respiratory Effort, Clear to Auscultation Cardiovascular: No Edema - Peripheral Pulse Exam Radial Pulses: Bilateral Normal Pedal Pulses: Bilateral Normal Posterior Tibial Pulse: Bilateral Normal Femoral Pulses: Bilateral Normal Popliteal Pulses: Bilateral Normal - Skin Exam Skin Exam: Normal Turgor - Anali Coma Scale Best Eye Response: 4 - Spontaneous Best Motor Response: 6 - Obeys Commands Best Verbal Response: 5 - Oriented Coma Scale Total: 15 Assess/Plan/Problems-Billing Assessment:
[2018-04-19] MEDS: Norepinephrine 16MCG/ML IVPRE* 4,000 MCG/250 ML BAG IV SCH (16:46)
[2018-04-19] MEDS: KCL 20 MEQ/100 ML IVPREMIX* 20 MEQ/100 ML BAG IV SCH ×2 (16:47→19:23)
[2018-04-20] MEDS: Acetaminophen TAB* 325 MG PO PRN ×3 (01:47→21:39)
[2018-04-20] MEDS: Heparin VIAL(*) 5000 UNITS/ML VIAL (FIVE THOUSAND) SUBCUT SCH ×3 (05:19→21:43)
[2018-04-20 05:36] LABS: ABS Basophils 0 10^3/ul (0-0.2); ABS Eosinophils 0 10^3/ul (0-0.6); ABS Lymphocytes 0.6 10^3/ul (1.0-4.8); ABS Monocytes 0.8 10^3/ul (0-0.8); ABS Neutrophils 8.3 10^3/ul (1.5-7.7); ABS Nucleated RBC 0 10^3/ul; Eosinophil % 0.4 % (0-6); Hematocrit 33 % (35-47); Hemoglobin 10.8 g/dl (12.0-16.0); Mean Corpuscular HGB Conc 33 g/dl (31-36); Mean Corpuscular Hemoglobin 31 pg (27-31); Mean Corpuscular Volume 92 fL (80-97); Mean Platelet Volume 9.6 um3 (7.4-10.4); Nucleated Red Blood Cells % 0; Platelet Count 125 10^3/ul (150-450); Red Blood Count 3.53 10^6/ul (4.00-5.40); Red Cell Distribution Width 14 % (10.5-15); White Blood Count 9.7 10^3/ul (3.5-10.8)
[2018-04-20 05:57] LABS: EGFR Non-African American 127.5 (>60)
[2018-04-20] MEDS: Liothyronine TAB* 5 MCG PO SCH (08:34)
[2018-04-20] MEDS: Oseltamivir CAP* 75 MG CAP PO SCH ×2 (08:34→21:38)
[2018-04-20] MEDS: Montelukast Sodium TAB* 5 MG PO SCH (08:34)
[2018-04-20] MEDS: Lifitegrast [Xiidra] 1 DROP BOTH EYES SCH (08:35)
[2018-04-20] MEDS: Ibuprofen TAB* 600 MG PO PRN ×2 (08:35→15:15)
[2018-04-20] MEDS ORDERED: Pneumococcal *Vac Polyvalent 0.5 ML VIAL IM ONE (09:00)
[2018-04-20] MEDS ORDERED: Magnesium Sulfate 2 GM IV* 2 GM/50 ML BAG IVPB ONE (09:26)
[2018-04-20] MEDS ORDERED: Furosemide IV* 10 MG/ML 2 ML VIAL (20 MG) IV SLOW PU ONE (09:51)
--- NOTE | 2018-04-20 10:14 | PN ---
Date of Service: 04/20/18 Critical Care Services: 43F with hypothyroid, migraines presents with dyspnea 2/2 CHF 2/2 mitral stenosis in the setting of community acquired pneumonia 04/20: PICC line placed yesterday. Now on levophed. Vital Signs: Temp Pulse Resp BP SpO2 FiO2 99.5 F 109 21 86/64 96 98 04/20/18 07:42 04/20/18 09:45 04/20/18 09:45 04/20/18 09:45 04/20/18 09:45 04/19 01:19 Physical Exam: Gen - Acutely ill HEENT - ncat, eomi, perrl Neck - mild jvd CV - s1/s2, +murmur, tachy Lungs - dec bs bilaterally ABd - soft, nt, nd Ext - no edema Neuro - non-focal Fluid Balance (Past 24 Hours): I= O= Net Intake & Output 04/18/18 04/19/18 04/20/18 04/21/18 06:59 06:59 06:59 06:59 Intake Total 750 746.1 320 Output Total 2500 650 Balance 750 -1753.9 -330 Weight 49.895 kg 53.6 kg Intake: IV Fluids 750 382.2 NS 382.2 IVPB 216 NS 216 Medicated IV 147.9 CC - Norepinephrine/ 147.9 Levophed Oral 320 Output: Urine 2150 650 [place] 350 Other: Estimated Void Medium # Voids 1 Labs: Laboratory Results - last 24 hr 04/19/18 04/20/18 04/20/18 05:53 05:20 05:20 WBC 9.7 RBC 3.53 L Hgb 10.8 L Hct 33 L MCV 92 MCH 31 MCHC 33 RDW 14 Plt Count 125 L MPV 9.6 Neut % (Auto) 85.3 H Lymph % (Auto) 6.0 L [place] % (Auto) 7.8 H Eos % (Auto) 0.4 Baso % (Auto) 0.5 Absolute Neuts (auto) 8.3 H Absolute Lymphs (auto) 0.6 L Absolute Monos (auto) 0.8 Absolute Eos (auto) 0 Absolute Basos (auto) 0 Absolute Nucleated RBC 0 Nucleated RBC % 0 Sodium 136 138 Potassium 3.6 3.8 Chloride 104 107 Carbon Dioxide 24 25 Anion Gap 8 6 BUN 8 6 Creatinine 0.61 0.52 Est GFR ( Amer) 128.3 154.3 Est GFR (Non-Af Amer) 106.1 127.5 BUN/Creatinine Ratio 13.1 11.5 Glucose 102 H 86 Calcium 8.7 8.5 L Magnesium 1.6 L TSH 0.37 Free T4 0.99 Studies: CXR 04/19 IMPRESSION: #. The constellation of findings is most consistent with pulmonary edema. CTA Chest 04/19 1. LARGE BILATERAL PLEURAL EFFUSIONS WITH MULTIFOCAL AIRSPACE DISEASE THROUGHOUT BOTH LUNGS. 2. MILD PULMONARY INTERSTITIAL EDEMA. 3. NO PULMONARY ARTERIAL FILLING DEFECT TO SUGGEST PULMONARY EMBOLISM TTE 04/19 Conclusions Global left ventricular wall motion and contractility are within normal limits. There is normal left ventricular systolic function. The estimated ejection fraction is 55-60%. The right ventricle is mildly dilated. The right ventricular global systolic function is mildly to moderatelyreduced. There is no evidence of aortic stenosis. There is systolic bowing of the mitral valve without evidence ofprolapse. The mitral valve leaflets appear rheumatic. Mitral valve leaflet mobility is moderately restricted. There is systolic bowing of the mitral valve without evidence ofprolapse. There is moderate to severe mitral stenosis. There is no evidence of mitral regurgitation. There is moderate tricuspid regurgitation. There is evidence of severe pulmonary hypertension. The right ventricular systolic pressure is estimated to be 85-90 mmHg. A trivial pericardial effusion is visualized. There are no signs of significant hemodynamic compromise. A bilateral pleural effusion is present. Asites is present Impression: 43F with hypothyroid, migraines presents with dyspnea 2/2 CHF 2/2 mitral stenosis in the setting of community acquired pneumonia Plan: Neuro - migraines - triptan prn CV - hypotension, chf, mitral stenosis - shock 2/2 sepsis - diuresis as bp tolerates for chf - levophed for bp support - TTE with mod to severe mitral stenosis Pulm - acute hypoxic respiratory failure - 2/2 pna and chf - supplemental o2 - abx and lasix ID - sepsis 2/2 CAP - f/u blood cultures - urine legionella/pneumococcal ag negative - levaquin - lactate normal - rapid flu neg, pcr pending GI - diet as tolerated Renal - monitor lytes - monitor i/o Heme - monitor cbc Endo - hypothyroid - check tsh, ft4 - c/w thyroid replacement Lines - picc (04/19/18) PPx - gi/dvt Full Code Critical Care Time: 55 mins
--- NOTE | 2018-04-20 12:01 | RAD ---
HISTORY: ascites? COMPARISONS: None. TECHNIQUE: Multiple transverse and longitudinal ultrasound images were obtained of the abdomen using grayscale imaging. FINDINGS: There is moderate amount ascites within the upper quadrants bilaterally. There are bilateral pleural effusions. IMPRESSION: ASCITES. BILATERAL PLEURAL EFFUSIONS.
--- NOTE | 2018-04-20 12:55 | CONS ---
CC: Abigail Pa MD * CARDIOLOGY CONSULTATION: DATE OF CONSULT: 04/19/18 INDICATION FOR CONSULTATION: Congestive heart failure, shortness of breath, mitral stenosis. HISTORY OF PRESENT ILLNESS: The patient is a 43-year-old female with a history of hypothyroidism, who was admitted to the hospital because of shortness of breath and fevers. The patient states that over the past week or so she has just been getting more short of breath, has been having a dry cough. The patient states that she was on vacation in [facility] and was even unable to walk a block without being short of breath. She came back to the [facility] and decided to go to the emergency room because of her symptoms. The patient's chest x-ray showed bilateral effusions and she was admitted to the hospital for evaluation. The patient underwent an echocardiogram, which was thought to have significant pericardial effusion, but in reality just had large pleural effusion and ascites. Her LV function was normal. Her left atrium was severely enlarged and she has moderate-to- severe mitral stenosis with doming of the mitral valve potentially consistent with rheumatic heart disease. Aortic valve was normal. Her tricuspid valve was normal. In speaking with the patient, she says that a month ago she was out doing her usual activities. She states she walks her dogs on a regular basis. 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 She then states that over the last six months or so, she says she needs to sleep on two pillows at night because she gets short of breath at night. She denies any lower extremity edema. She denies any palpitations. She denies any lightheadedness, dizziness or syncope. PAST MEDICAL HISTORY: Significant for hypothyroidism and migraines. OUTPATIENT MEDICATIONS: 1. Eletriptan 10 mg as needed for migraines. 2. Eyedrops. 3. Cytomel 10 mcg a day. 4. Singulair 5 mg a day. 5. Compazine as needed. ALLERGIES: No known drug allergies. FAMILY HISTORY: Father has history of hypertension. Grandmother had a history of heart disease. SOCIAL HISTORY: She works at [employer]. She denies any tobacco or alcohol use. She denies any illicit drug use. REVIEW OF SYSTEMS: Negative for changes in bowel or bladder habits. Positive for weight loss. Negative for abdominal pain. Positive for fevers and chills and cough. PHYSICAL EXAM: Height is 5 feet, weight is 118 pounds, temperature 99.5, heart rate is 100, blood pressure 102/64, respiratory rate is 21, oxygen saturation 97 % on face mask. Sclerae anicteric. Oropharynx is pink without erythema. Carotids are 2+ without bruits. JVD is normal. Thyroid is normal. Cardiac Exam: S1, S2 without any murmurs, rubs or gallops. Lungs have mild rhonchi. There is decreased breath sounds at the base. There is dullness to percussion. Abdomen is soft, nontender, nondistended with normoactive bowel sounds. Extremities show no edema. She has 2+ pulses throughout. The patient is awake and alert, and oriented. She moves all four extremities equally. Her pulses are normal throughout. LABORATORY DATA: CBC: White count 9.7, hemoglobin 10, hematocrit 33, platelet count 125. Chemistries within normal limits. BUN 6, creatinine 0.5, BNP 566, troponins are negative. TSH is 0.37. CT of chest showed no evidence of pulmonary embolism, positive for bilateral pleural effusions, no evidence of pericardial effusion. IMPRESSION AND PLAN: This is a 43-year-old female, who was admitted to the hospital with shortness of breath. She was found to have severe bilateral pleural effusions. I think these are due to a reactive event either a viral syndrome or a bacterial pneumonia. The patient was found to have severe mitral stenosis. I think this is surreptitious finding. Again, the patient's only symptoms were some mild orthopnea at night. For now, my recommendation is to have her treated for her pulmonary issues. The patient at some point will need a transesophageal echocardiogram and potentially a cardiac cath for evaluation for intervention of her mitral valve. I think the patient is a good candidate for mitral valvuloplasty. [id number]/[facility] #: [id number] [facility] BRONX HOSPITALCheri
[2018-04-20] MEDS: Levofloxacin 750 MG IVPREMIX(* 750 MG/150 ML BAG IVPB SCH (13:27)
[2018-04-20] MEDS: Norepinephrine 16MCG/ML IVPRE* 4,000 MCG/250 ML BAG IV SCH (17:31)
[2018-04-21] MEDS: Lifitegrast [Xiidra] 1 DROP BOTH EYES SCH ×3 (02:25→21:50)
[2018-04-21 05:22] LABS: ABS Basophils 0.1 10^3/ul (0-0.2); ABS Eosinophils 0.5 10^3/ul (0-0.6); ABS Lymphocytes 0.9 10^3/ul (1.0-4.8); ABS Monocytes 0.8 10^3/ul (0-0.8); ABS Neutrophils 7.6 10^3/ul (1.5-7.7); ABS Nucleated RBC 0 10^3/ul; Eosinophil % 4.7 % (0-6); Hematocrit 33 % (35-47); Hemoglobin 10.8 g/dl (12.0-16.0); Lymphocyte % 9.1 % (25-47); Mean Corpuscular HGB Conc 33 g/dl (31-36); Mean Corpuscular Hemoglobin 30 pg (27-31); Mean Corpuscular Volume 91 fL (80-97); Mean Platelet Volume 9.7 um3 (7.4-10.4); Nucleated Red Blood Cells % 0; Platelet Count 161 10^3/ul (150-450); Red Blood Count 3.58 10^6/ul (4.00-5.40); Red Cell Distribution Width 14 % (10.5-15); White Blood Count 9.9 10^3/ul (3.5-10.8)
[2018-04-21 05:40] LABS: EGFR Non-African American 133.4 (>60)
[2018-04-21] MEDS: Heparin VIAL(*) 5000 UNITS/ML VIAL (FIVE THOUSAND) SUBCUT SCH ×3 (06:31→21:50)
[2018-04-21] MEDS ORDERED: Vancomycin(*) 1,000 MG in NS 0.9% 250 ML* 250 ML IVPB ONE (08:14)
[2018-04-21] MEDS ORDERED: Piperacillin/Tazobac ADVAN(*) 3.375 GM in NS 0.9% 100 ML* 100 ML IVPB ONE (08:14)
[2018-04-21] MEDS ORDERED: Vancomycin per Pharmacy* NOTE FOLLOW UP PRN (08:24)
[2018-04-21] MEDS ORDERED: Potassium Phosphate IV* 10 MMOLE in NS 0.9% 250 ML* 250 ML IVPB ONE (08:34)
[2018-04-21] MEDS ORDERED: Magnesium Sulfate 2 GM IV* 2 GM/50 ML BAG IVPB ONE (08:34)
--- NOTE | 2018-04-21 08:39 | PN ---
Date of Service: 04/21/18 Critical Care Services: 43F with hypothyroid, migraines presents with dyspnea 2/2 CHF 2/2 mitral stenosis in the setting of community acquired pneumonia 04/20: PICC line placed yesterday. Now on levophed. 04/21: Complains of migraine. Diuresing well. Remains on levophed. Vital Signs: Temp Pulse Resp BP SpO2 FiO2 100.5 F 93 24 93/62 95 98 04/21/18 07:47 04/21/18 06:30 04/21/18 06:54 04/21/18 06:30 04/21/18 06:30 04/19 01:19 Physical Exam: Gen - Acutely ill HEENT - ncat, eomi, perrl Neck - mild jvd CV - s1/s2, +murmur, tachy Lungs - dec bs bilaterally ABd - soft, nt, nd Ext - no edema Neuro - non-focal Fluid Balance (Past 24 Hours): I= O= Net Intake & Output 04/19/18 04/20/18 04/21/18 04/22/18 06:59 06:59 06:59 06:59 Intake Total 750 746.1 2250.6 Output Total 2500 2900 Balance 750 -1753.9 -649.4 Weight 49.895 kg 53.6 kg 53.3 kg Intake: IV Fluids 750 382.2 35.6 NS 382.2 35.6 IVPB 216 53 NS 216 53 Medicated IV 147.9 322 CC - Norepinephrine/ 147.9 322 Levophed Oral 1840 Output: Urine 2150 2900 [place] 350 Other: Estimated Void Medium # Voids 1 Labs: Laboratory Results - last 24 hr 04/19/18 04/21/18 04/21/18 05:53 05:14 05:14 WBC 9.9 RBC 3.58 L Hgb 10.8 L Hct 33 L MCV 91 MCH 30 MCHC 33 RDW 14 Plt Count 161 MPV 9.7 Neut % (Auto) 77.1 Lymph % (Auto) 9.1 L [place] % (Auto) 8.5 H Eos % (Auto) 4.7 Baso % (Auto) 0.6 Absolute Neuts (auto) 7.6 Absolute Lymphs (auto) 0.9 L Absolute Monos (auto) 0.8 Absolute Eos (auto) 0.5 Absolute Basos (auto) 0.1 Absolute Nucleated RBC 0 Nucleated RBC % 0 Sodium 137 Potassium 3.4 L Chloride 105 Carbon Dioxide 25 Anion Gap 7 BUN 9 Creatinine 0.50 L Est GFR ( Amer) 161.4 Est GFR (Non-Af Amer) 133.4 BUN/Creatinine Ratio 18.0 Glucose 108 H Calcium 8.4 L Phosphorus 1.7 L Magnesium 1.8 L HIV 1&2 Antibody Nonreactive Studies: CXR 04/19 IMPRESSION: #. The constellation of findings is most consistent with pulmonary edema. CTA Chest 04/19 1. LARGE BILATERAL PLEURAL EFFUSIONS WITH MULTIFOCAL AIRSPACE DISEASE THROUGHOUT BOTH LUNGS. 2. MILD PULMONARY INTERSTITIAL EDEMA. 3. NO PULMONARY ARTERIAL FILLING DEFECT TO SUGGEST PULMONARY EMBOLISM TTE 04/19 Conclusions Global left ventricular wall motion and contractility are within normal limits. There is normal left ventricular systolic function. The estimated ejection fraction is 55-60%. The right ventricle is mildly dilated. The right ventricular global systolic function is mildly to moderatelyreduced. There is no evidence of aortic stenosis. There is systolic bowing of the mitral valve without evidence ofprolapse. The mitral valve leaflets appear rheumatic. Mitral valve leaflet mobility is moderately restricted. There is systolic bowing of the mitral valve without evidence ofprolapse. There is moderate to severe mitral stenosis. There is no evidence of mitral regurgitation. There is moderate tricuspid regurgitation. There is evidence of severe pulmonary hypertension. The right ventricular systolic pressure is estimated to be 85-90 mmHg. A trivial pericardial effusion is visualized. There are no signs of significant hemodynamic compromise. A bilateral pleural effusion is present. Asites is present Impression: 43F with hypothyroid, migraines presents with dyspnea 2/2 CHF 2/2 mitral stenosis in the setting of community acquired pneumonia Plan: Neuro - migraines - toradol and reglan ordered CV - hypotension, chf, mitral stenosis - shock 2/2 sepsis - diuresis as bp tolerates for chf - levophed for bp support - TTE with mod to severe mitral stenosis Pulm - acute hypoxic respiratory failure - 2/2 pna and chf - supplemental o2 - abx and lasix ID - sepsis 2/2 CAP - f/u blood cultures - urine legionella/pneumococcal ag negative - switched to vanc/zosyn patient appears slightly worse - lactate normal - rapid flu neg, pcr pending GI - diet as tolerated Renal - monitor lytes - monitor i/o Heme - monitor cbc Endo - hypothyroid - check tsh, ft4 - c/w thyroid replacement Lines - picc (04/19/18) PPx - gi/dvt Full Code Critical Care Time: 55 mins
[2018-04-21] MEDS: Metoclopramide IV* 5 MG/ML 2 ML VIAL IV SLOW PU ONE ×2 (08:45→10:20)
[2018-04-21] MEDS: Furosemide IV* 10 MG/ML 2 ML VIAL (20 MG) IV SLOW PU ONE ×2 (08:45→10:20)
[2018-04-21] MEDS: Ketorolac INJ* 15 MG/ML 1 ML VIAL IV PUSH ONE ×2 (08:45→10:20)
[2018-04-21] MEDS: Oseltamivir CAP* 75 MG CAP PO SCH ×2 (08:46→20:00)
[2018-04-21] MEDS: Liothyronine TAB* 5 MCG PO SCH (08:46)
[2018-04-21] MEDS ORDERED: Zosyn per Pharmacy* NOTE FOLLOW UP SCH (09:00)
[2018-04-21] MEDS ORDERED: Alteplase (CATHFLO)* 2 MG VIAL IV ONE (09:00)
[2018-04-21] MEDS ORDERED: Vancomycin(*) 0 MG in NS 0.9% 250 ML* 250 ML IVPB SCH (09:00)
[2018-04-21] MEDS ORDERED: Alteplase (CATHFLO)* 2 MG/2 ML VIAL IV ONE (09:02)
[2018-04-21] MEDS: KCL 20 MEQ/100 ML IVPREMIX* 20 MEQ/100 ML BAG IV SCH ×3 (11:46→15:52)
[2018-04-21] MEDS: Norepinephrine 16MCG/ML IVPRE* 4,000 MCG/250 ML BAG IV SCH ×2 (12:32→15:48)
[2018-04-21] MEDS: ZOSYN 3.375 GM Q8H per EXTENDED INFUSION IVPB SCH ×4 (14:21→21:50)
[2018-04-21] MEDS ORDERED: Furosemide IV* 10 MG/ML 2 ML VIAL (20 MG) IV SLOW PU ONE (14:54)
[2018-04-21] MEDS: Ibuprofen TAB* 600 MG PO PRN (16:46)
[2018-04-21] MEDS ORDERED: Ketorolac INJ* 15 MG/ML 1 ML VIAL IV PUSH ONE (19:50)
[2018-04-21] MEDS ORDERED: Metoclopramide IV* 5 MG/ML 2 ML VIAL IV ONE (19:50)
[2018-04-21] MEDS ORDERED: Metoclopramide IV* 5 MG/ML 2 ML VIAL ONE (19:57)
[2018-04-21] MEDS ORDERED: Ketorolac INJ* 15 MG/ML 1 ML VIAL ONE (19:57)
[2018-04-21] MEDS: Vancomycin(*) 750 MG in NS 0.9% 250 ML* 250 ML IVPB SCH (20:00)
[2018-04-22] MEDS: Vancomycin(*) 750 MG in NS 0.9% 250 ML* 250 ML IVPB SCH ×2 (04:51→12:12)
[2018-04-22] MEDS: Ibuprofen TAB* 600 MG PO PRN (04:56)
[2018-04-22 05:21] LABS: ABS Basophils 0.1 10^3/ul (0-0.2); ABS Eosinophils 1.3 10^3/ul (0-0.6); ABS Lymphocytes 1.1 10^3/ul (1.0-4.8); ABS Monocytes 0.6 10^3/ul (0-0.8); ABS Neutrophils 4.9 10^3/ul (1.5-7.7); ABS Nucleated RBC 0 10^3/ul; Eosinophil % 16.6 % (0-6); Hematocrit 30 % (35-47); Hemoglobin 10.2 g/dl (12.0-16.0); Lymphocyte % 13.6 % (25-47); Mean Corpuscular HGB Conc 34 g/dl (31-36); Mean Corpuscular Hemoglobin 31 pg (27-31); Mean Corpuscular Volume 91 fL (80-97); Mean Platelet Volume 9.4 um3 (7.4-10.4); Nucleated Red Blood Cells % 0; Platelet Count 174 10^3/ul (150-450); Red Blood Count 3.32 10^6/ul (4.00-5.40); Red Cell Distribution Width 14 % (10.5-15)
[2018-04-22 05:40] LABS: EGFR Non-African American 122.1 (>60)
[2018-04-22] MEDS: Norepinephrine 16MCG/ML IVPRE* 4,000 MCG/250 ML BAG IV SCH (06:08)
[2018-04-22] MEDS: Heparin VIAL(*) 5000 UNITS/ML VIAL (FIVE THOUSAND) SUBCUT SCH (06:08)
[2018-04-22] MEDS: ZOSYN 3.375 GM Q8H per EXTENDED INFUSION IVPB SCH ×2 (06:30)
[2018-04-22] MEDS: Lifitegrast [Xiidra] 1 DROP BOTH EYES SCH (07:17)
[2018-04-22] MEDS ORDERED: Metoclopramide IV* 5 MG/ML 2 ML VIAL IV SLOW PU ONE ×2 (08:06→12:09)
[2018-04-22] MEDS ORDERED: Ketorolac INJ* 15 MG/ML 1 ML VIAL IV PUSH ONE ×2 (08:06→12:09)
--- NOTE | 2018-04-22 08:07 | RAD ---
Indication: CHF. Sepsis. Comparison: April 19, 2018 CT and chest radiograph. Technique: Upright AP 0551 hours Report: Persistent moderate RIGHT and smaller LEFT dependent pleural effusions with proportional atelectasis and diffuse prominence of the interstitial markings. Prominent ill-defined central pulmonary vasculature. New patchy alveolar opacities may represent worsening of CHF or superimposed inflammatory infiltrates. Negative for pneumothorax. Tip of RIGHT upper extremity PICC at level of superior vena cava directed central. IMPRESSION: #. Pulmonary edema with unchanged moderate RIGHT and smaller LEFT dependent pleural effusions. #. New patchy alveolar opacities may represent worsening of CHF or superimposed pneumonia infiltrates. R1
--- NOTE | 2018-04-22 08:19 | PN ---
Date of Service: 04/22/18 Critical Care Services: 43F with hypothyroid, migraines presents with dyspnea 2/2 CHF 2/2 mitral stenosis in the setting of community acquired pneumonia 04/20: PICC line placed yesterday. Now on levophed. 04/21: Complains of migraine. Diuresing well. Remains on levophed. Vital Signs: Temp Pulse Resp BP SpO2 FiO2 99.1 F 92 25 115/75 97 98 04/22/18 05:13 04/22/18 08:00 04/22/18 08:00 04/22/18 07:30 04/22/18 08:00 04/22 04:00 Physical Exam: Gen - Acutely ill HEENT - ncat, eomi, perrl Neck - mild jvd CV - s1/s2, +murmur, tachy Lungs - dec bs bilaterally ABd - soft, nt, nd Ext - no edema Neuro - non-focal Fluid Balance (Past 24 Hours): I= O= Net Intake & Output 04/20/18 04/21/18 04/22/18 04/23/18 06:59 06:59 06:59 06:59 Intake Total 746.1 2250.6 2796.6 Output Total 2500 2900 3575 Balance -1753.9 -649.4 -778.4 Weight 53.6 kg 53.3 kg 52 kg Intake: IV Fluids 382.2 35.6 781 ABX - VANCOMYCIN 288 K Phos 4 KCl 302 NS 382.2 35.6 134 mg 53 IVPB 216 53 865 ABX - VANCOMYCIN 478 K Phos 256 NS 216 53 131 Medicated IV 147.9 322 300.6 CC - Norepinephrine/ 147.9 322 300.6 Levophed Oral 1840 850 Output: Urine 2150 2900 3575 [place] 350 Other: Estimated Void Medium Date of Last Bowel 04/22/18 Movement # Bowel Movements 1 Estimated Stool Amount Medium # Voids 1 Labs: Laboratory Results - last 24 hr 04/22/18 04/22/18 05:01 05:01 WBC 8.0 RBC 3.32 L Hgb 10.2 L Hct 30 L MCV 91 MCH 31 MCHC 34 RDW 14 Plt Count 174 MPV 9.4 Neut % (Auto) 60.9 Lymph % (Auto) 13.6 L [place] % (Auto) 7.8 H Eos % (Auto) 16.6 H Baso % (Auto) 1.1 Absolute Neuts (auto) 4.9 Absolute Lymphs (auto) 1.1 Absolute Monos (auto) 0.6 Absolute Eos (auto) 1.3 H Absolute Basos (auto) 0.1 Absolute Nucleated RBC 0 Nucleated RBC % 0 Sodium 139 Potassium 3.9 Chloride 107 Carbon Dioxide 26 Anion Gap 6 BUN 8 Creatinine 0.54 Est GFR ( Amer) 147.7 Est GFR (Non-Af Amer) 122.1 BUN/Creatinine Ratio 14.8 Glucose 96 Calcium 8.4 L Phosphorus 2.5 Magnesium 2.0 Studies: CXR 04/22 IMPRESSION: #. Pulmonary edema with unchanged moderate RIGHT and smaller LEFT dependent pleural effusions. #. New patchy alveolar opacities may represent worsening of CHF or superimposed pneumonia infiltrates. CXR 04/19 IMPRESSION: #. The constellation of findings is most consistent with pulmonary edema. CTA Chest 04/19 1. LARGE BILATERAL PLEURAL EFFUSIONS WITH MULTIFOCAL AIRSPACE DISEASE THROUGHOUT BOTH LUNGS. 2. MILD PULMONARY INTERSTITIAL EDEMA. 3. NO PULMONARY ARTERIAL FILLING DEFECT TO SUGGEST PULMONARY EMBOLISM TTE 04/19 Conclusions Global left ventricular wall motion and contractility are within normal limits. There is normal left ventricular systolic function. The estimated ejection fraction is 55-60%. The right ventricle is mildly dilated. The right ventricular global systolic function is mildly to moderatelyreduced. There is no evidence of aortic stenosis. There is systolic bowing of the mitral valve without evidence ofprolapse. The mitral valve leaflets appear rheumatic. Mitral valve leaflet mobility is moderately restricted. There is systolic bowing of the mitral valve without evidence ofprolapse. There is moderate to severe mitral stenosis. There is no evidence of mitral regurgitation. There is moderate tricuspid regurgitation. There is evidence of severe pulmonary hypertension. The right ventricular systolic pressure is estimated to be 85-90 mmHg. A trivial pericardial effusion is visualized. There are no signs of significant hemodynamic compromise. A bilateral pleural effusion is present. Asites is present Impression: 43F with hypothyroid, migraines presents with dyspnea 2/2 CHF 2/2 mitral stenosis in the setting of community acquired pneumonia Plan: Neuro - migraines - toradol and reglan ordered CV - hypotension, chf, mitral stenosis - shock 2/2 sepsis - diuresis as bp tolerates for chf - levophed for bp support - TTE with mod to severe mitral stenosis Pulm - acute hypoxic respiratory failure - 2/2 pna and chf - supplemental o2 - abx and lasix - persistent pleural effusions despite diuresis - will discuss thoracentesis with patient today. ID - sepsis 2/2 CAP - f/u blood cultures - urine legionella/pneumococcal ag negative - switched to vanc/zosyn - lactate normal - flu negative GI - diet as tolerated Renal - monitor lytes - monitor i/o Heme - monitor cbc Endo - hypothyroid - check tsh, ft4 - c/w thyroid replacement Lines - picc (04/19/18) PPx - gi/dvt Full Code Critical Care Time: 55 mins
[2018-04-22] MEDS ORDERED: Furosemide IV* 10 MG/ML VIAL (40 MG) IV ONE (08:20)
[2018-04-22] MEDS ORDERED: Furosemide IV* 10 MG/ML VIAL (40 MG) ONE (08:30)
[2018-04-22] MEDS: Oseltamivir CAP* 75 MG CAP PO SCH (08:44)
[2018-04-22] MEDS: Liothyronine TAB* 5 MCG PO SCH (08:44)
[2018-04-22] MEDS: Acetaminophen TAB* 325 MG PO PRN (12:12)
--- NOTE | 2018-04-22 13:21 | DS ---
Patient Name: Sabine Bingham Admission Date: 04/19/18 Discharge Date: 04/22/18 Attending Physician: Ryan Thao Primary Care Physician: Abigail Pa Referring Physician: Lonnie Alvarez Consulting Physician(s): Roger Jimenez (Cardiology) Condition on Discharge: Stable Final Diagnosis: CHF (congestive heart failure) (Acute) I50.9 Community acquired pneumonia (Acute) J18.9 Mitral stenosis (Acute) I05.0 Septic shock (Acute) A41.9, R65.21 Procedures: CXR 04/22 IMPRESSION: #. Pulmonary edema with unchanged moderate RIGHT and smaller LEFT dependent pleural effusions. #. New patchy alveolar opacities may represent worsening of CHF or superimposed pneumonia infiltrates. CXR 04/19 IMPRESSION: #. The constellation of findings is most consistent with pulmonary edema. CTA Chest 04/19 1. LARGE BILATERAL PLEURAL EFFUSIONS WITH MULTIFOCAL AIRSPACE DISEASE THROUGHOUT BOTH LUNGS. 2. MILD PULMONARY INTERSTITIAL EDEMA. 3. NO PULMONARY ARTERIAL FILLING DEFECT TO SUGGEST PULMONARY EMBOLISM TTE 04/19 Conclusions Global left ventricular wall motion and contractility are within normal limits. There is normal left ventricular systolic function. The estimated ejection fraction is 55-60%. The right ventricle is mildly dilated. The right ventricular global systolic function is mildly to moderatelyreduced. There is no evidence of aortic stenosis. There is systolic bowing of the mitral valve without evidence ofprolapse. The mitral valve leaflets appear rheumatic. Mitral valve leaflet mobility is moderately restricted. There is systolic bowing of the mitral valve without evidence ofprolapse. There is moderate to severe mitral stenosis. There is no evidence of mitral regurgitation. There is moderate tricuspid regurgitation. There is evidence of severe pulmonary hypertension. The right ventricular systolic pressure is estimated to be 85-90 mmHg. A trivial pericardial effusion is visualized. There are no signs of significant hemodynamic compromise. A bilateral pleural effusion is present. Asites is present RUE PICC Line (04/19/18) History of Present Illness 43F with hypothyroid, migraines presents with shortness of breath. The patient was recently in [place] and she began to have bodyaches. She first noticed her symptoms when walking around. She took other counter medications and felt slightly better but then became felt worse. She [place]ame back to [place] and came to the ER where she had a chest xray which showed bilateral pleural effusions and pulmonary edema. She was also febrile. TTE was done showing mitral stenosis with pulmonary hypertension. CTA chest did not show any PE but did show multifocal airspace opacities. She was started on Abx and lasix. She reports dry cough. Laboratory/Data Laboratory Results - last 24 hr 04/22/18 04/22/18 05:01 05:01 WBC 8.0 RBC 3.32 L Hgb 10.2 L Hct 30 L MCV 91 MCH 31 MCHC 34 RDW 14 Plt Count 174 MPV 9.4 Neut % (Auto) 60.9 Lymph % (Auto) 13.6 L [place] % (Auto) 7.8 H Eos % (Auto) 16.6 H Baso % (Auto) 1.1 Absolute Neuts (auto) 4.9 Absolute Lymphs (auto) 1.1 Absolute Monos (auto) 0.6 Absolute Eos (auto) 1.3 H Absolute Basos (auto) 0.1 Absolute Nucleated RBC 0 Nucleated RBC % 0 Sodium 139 Potassium 3.9 Chloride 107 Carbon Dioxide 26 Anion Gap 6 BUN 8 Creatinine 0.54 Est GFR ( Amer) 147.7 Est GFR (Non-Af Amer) 122.1 BUN/Creatinine Ratio 14.8 Glucose 96 Calcium 8.4 L Phosphorus 2.5 Magnesium 2.0 Hospital Course The patient was admitted to the ICU. She was started on antibiotics and empiric tamiflu. She was started on iv lasix for acute congestive heart failure. TTE was performed which showed moderate to severe mitral stenosis and pulmonary hypertension. The patient was started on levophed for bp support. Despite aggressive diureses the patient had persistent pleural effusions. Cardiology recommended that the patient be transferred to [facility] for mitral valvuloplasy evaluation and pulmonary hypertension management. Discharge Medications Acetaminophen (Tylenol Tab*) 650 mg PO Q4H PRN PRN Reason: FEVER/PAIN Last Admin: 04/22/18 12:12 Dose: 650 mg Albuterol (Ventolin 2.5 Mg/3 Ml Neb.Goldie*) 2.5 mg INH Q4H PRN PRN Reason: SOB/WHEEZING Heparin Sodium (Porcine) (Heparin Vial(*)) 5,000 units SUBCUT Q8HR SERA Last Admin: 04/22/18 06:08 Dose: 5,000 units Heparin Sodium (Porcine) (Heparin Flush Picc/Ml/Cvc(*)) 1 - 3 ml FLUSH 0600, 1800 [facility]; Protocol Last Admin: 04/22/18 08:42 Dose: 1 ml Norepinephrine Bitartrate (Levophed 16 Mcg/Ml Premix Bag*) 4,000 mcg in 250 mls @ 0 mls/hr IV .INITIAL RATE SERA; Protocol Last Admin: 04/22/18 06:08 Dose: 18.8 mls/hr Piperacillin Sod/Tazobactam (Sod 3.375 gm/ Sodium Chloride) 100 mls @ 25 mls/ hr IVPB Q8H SERA Last Admin: 04/22/18 06:30 Dose: 25 mls/hr Vancomycin HCl 750 mg/ Sodium (Chloride) 250 mls @ 166.667 mls/hr IVPB Q8H [facility] Last Admin: 04/22/18 12:12 Dose: 166.667 mls/hr Liothyronine Sodium (Cytomel Tab*) 5 mcg PO DAILY [facility] Last Admin: 04/22/18 08:44 Dose: 5 mcg Eletriptan Hbr [ Eletriptan Hbr] 20 Mg 20 mg PO ONCE PRN PRN Reason: MIGRAINE HEADACHE Lifitegrast [Xiidra] (1 Drop) 1 drop BOTH EYES BID [facility] Last Admin: 04/22/18 07:17 Dose: Not Given Oseltamivir Phosphate (Tamiflu Cap*) 75 mg PO BID [facility] Stop: 04/23/18 21:01 Last Admin: 04/22/18 08:44 Dose: 75 mg Pharmacy Consult (Zosyn Per Pharmacy*) 1 note FOLLOW UP .ZOSYN PER PHARMACY [facility] Pharmacy Consult (Vancomycin Per Pharmacy*) 1 note FOLLOW UP . PRN PRN Reason: PER PROTOCOL Pharmacy Profile Note (Vancomycin Trough Check) 1 note FOLLOW UP ONCE ONE Stop: 04/23/18 11:31 Discharge Instructions Please follow up with the team at [facility] Follow up Appointments Please follow up with your PMD after discharge. Code Status Full Code
[2018-04-22] MEDS ORDERED: DiMENhydriNATE IV* 50 MG/ML VIAL IV PUSH PRN (13:39)
[2018-04-22 14:13] VITALS: BP 105/71
[2018-04-23] MEDS ORDERED: Vancomycin Trough Check NOTE FOLLOW UP ONE (11:30)
== END 2018-04-22 14:10 | disposition short-term general hospital (02) | DRG 871 ==
LOC: ED 22:33 → ICU 04-19 02:15 → OBSVTOIN 04-19 02:15 → UNDOADMOB 04-19 07:19 → MED 04-19 07:19
PROVIDERS: ADMIT Internal Medicine; ATTEND Internal Medicine
PROC: 02HV33Z Insertion of Infusion Device into Superior Vena Cava, Percutaneous Approach (ICD-10-PCS; principal; 2018-04-19)
PROC: 3E033XZ Introduction of Vasopressor into Peripheral Vein, Percutaneous Approach (ICD-10-PCS; 2018-04-20)
DX: A41.9 Sepsis, unspecified organism (principal); J18.9 Pneumonia, unspecified organism; J96.01 Acute respiratory failure with hypoxia; R65.21 Severe sepsis with septic shock; I50.31 Acute diastolic (congestive) heart failure; R18.8 Other ascites; I31.3 Pericardial effusion (noninflammatory); E03.9 Hypothyroidism, unspecified; G43.909 Migraine, unspecified, not intractable, without status migrainosus; J45.909 Unspecified asthma, uncomplicated; I08.1 Rheumatic disorders of both mitral and tricuspid valves; I27.20 Pulmonary hypertension, unspecified; R40.2364 Coma scale, best motor response, obeys commands, 24 hours or more after hospital admission; R40.2144 Coma scale, eyes open, spontaneous, 24 hours or more after hospital admission; R40.2254 Coma scale, best verbal response, oriented, 24 hours or more after hospital admission; Z82.49 Family history of ischemic heart disease and other diseases of the circulatory system; Z83.3 Family history of diabetes mellitus; Z72.89 Other problems related to lifestyle
CPT/HCPCS: 36415; 71045; 71275; 76705; 80048; 80053; 82550; 83605; 83735; 83880; 84100; 84439; 84443; 84484; 84702; 85025; 85379; 85610; 85730; 86140; 86703; 87040; 87641; 87899; 90686; 93005; 93306; 99283; A9270-GY; C1751; J0780; J1644; J1885; J1940; J2543; J2765; J2997; J3030; J3370; J3475; J3480; Q9967

== ENCOUNTER 2018-10-15 06:51 | Emergency (ER) | payer OTHER ==
--- NOTE | 2018-10-15 07:29 | ED ---
HPI Chest Pain - HPI Summary HPI Summary: This pt is a 43 y/o female presenting to [facility] c/o mid sternal chest pain today. Pt reports she found out she had mitral valve stenosis in April 2018 and had a valvularplasty in [place]. During yoga this morning pt bent down and she had pain in the middle of her chest. Her pain has been constant since then. She currently rates her pain 2 or 3 out of 10 in severity. Her pain is unchanged with deep breaths. Pt reports today's pain is different than anything she would normally have. Denies SOB, nausea, vomiting, dizziness. She does note she has been having nasal congestion. - History of Current Complaint Chief Complaint: EDChestWallPain Time Seen by Provider: 10/15/18 07:07 Hx Obtained From: Patient Onset/Duration: Started Hours Ago, Still Present Timing: Lasting Hours Current Severity: Moderate Pain Intensity: 3 Pain Scale Used: 0-10 Numeric Chest Pain Location: Mid Sternal Chest Pain Radiates: No Character: Dull/Aching - Aching Aggravating Factor(s): Nothing Alleviating Factor(s): Nothing Associated Signs and Symptoms: Positive: Chest Pain, Nasal Congestion. Negative : Dizziness, Shortness of Breath, Fever, Chills, Nausea, Vomiting - Additional Pertinent History Primary Care Physician: YVONNE - Allergy/Home Medications Allergies/Adverse Reactions: Allergies Allergy/AdvReac Type Severity Reaction Status Date / Time No Known Allergies Allergy Verified 10/15/18 07:03 PMH/Surg Hx/FS Hx/Imm Hx Endocrine/Hematology History: Reports: Hx Thyroid Disease - hypothyroid Denies: Hx Diabetes Cardiovascular History: Denies: Hx Hypertension Respiratory History: Denies: Hx Asthma History: Denies: Hx Renal Disease Sensory History: Denies: Hx Contacts or Glasses, Hx Hearing Aid Opthamlomology History: Denies: Hx Contacts or Glasses Neurological History: Reports: Hx Migraine - Immunization History Date of Tetanus Vaccine: utd Date of Influenza Vaccine: 04/2018 Immunizations Up to Date: Yes Infectious Disease History: No Infectious Disease History: Denies: Traveled Outside the [place] in Last 30 Days - Family History Known Family History: Positive: Hypertension, Diabetes - Social History Alcohol Use: Weekly Alcohol Amount: 2 - 3 drinks Hx Substance Use: No Substance Use Type: Reports: None Hx Tobacco Use: No Smoking Status (MU): Never Smoked Tobacco Review of Systems Negative: Fever ENT: Other - POS: nasal congestion Positive: Chest Pain Negative: Shortness Of Breath Negative: Vomiting, Nausea Neurological: Other - NEGATIVE: dizziness All Other Systems Reviewed And Are Negative: Yes Physical Exam - Summary Physical Exam Summary: VITAL SIGNS: Reviewed. GENERAL: Patient is a well-developed and nourished female who is lying comfortable in the stretcher. Patient is not in any acute respiratory distress. HEAD AND FACE: No signs of trauma. No ecchymosis, hematomas or skull depressions. No sinus tenderness. EYES: PERRLA, EOMI x 2, No injected conjunctiva, no nystagmus. EARS: Hearing grossly intact. Ear canals and tympanic membranes are within normal limits. MOUTH: Oropharynx within normal limits. NECK: Supple, trachea is midline, no adenopathy, no JVD, no carotid bruit, no c- spine tenderness, neck with full ROM. CHEST: Symmetric, no tenderness at palpation LUNGS: Clear to auscultation bilaterally. No wheezing or crackles. CVS: Regular rate and rhythm, S1 and S2 present, no murmurs or gallops appreciated. ABDOMEN: Soft, non-tender. No signs of distention. No rebound no guarding, and no masses palpated. Bowel sounds are normal. EXTREMITIES: FROM in all major joints, no edema, no cyanosis or clubbing. NEURO: Alert and oriented x 3. No acute neurological deficits. Speech is normal and follows commands. SKIN: Dry and warm Triage Information Reviewed: Yes Vital Signs On Initial Exam: Initial Vitals Temp Pulse Resp BP Pulse Ox 98.0 F 78 16 122/79 100 10/15/18 07:01 10/15/18 07:01 10/15/18 07:01 10/15/18 07:01 10/15/18 07:01 Vital Signs Reviewed: Yes Diagnostics - Vital Signs Vital Signs Temp Pulse Resp BP Pulse Ox 10/15/18 07:01 98.0 F 78 16 122/79 100 - Laboratory Result Diagrams: 10/15/18 07:50 10/15/18 07:50 Lab Statement: Any lab studies that have been ordered have been reviewed, and results considered in the medical decision making process. - Radiology Chest XR Radiology Interpretation Completed By: Radiologist Summary of Radiographic Findings: IMPRESSION: No active cardiopulmonary disease is noted. Dr. Owen has reviewed this report. - EKG 07:01 Cardiac Rate: NL - at 81 bpm EKG Rhythm: Sinus Rhythm Summary of EKG Findings: No ST elevation. Hyperacute T waves in V2, V3, V4, and V5. Re-Evaluation - Re-Evaluation First Eval Re-Evaluation Time: 08:52 Comment: Reviewed results with pt. She will be discharged home. Chest Pain Course/Dx - Course Assessment/Plan: This patient is a 43-year-old female who presents to the emergency department with a chief complaint of chest pain. Test results without any significant abnormality. Troponin 0.01. EKG is sinus rhythm without any ST elevations. Chest x-ray shows no acute pathology. I believe that the patient's symptoms are secondary to muscular skeletal pain. Therefore the patient will be discharged home with follow-up from her PCP. The heart to score is equal to 2. Supplemental ED for acute coronary syndrome. I discussed all the findings and test results with the patient and the need to follow up with her PCP. Patient is hemodynamically stable, alert oriented 3. - Chest Pain Differential Diagnosis/HQI/PQRI: Acute PR, ACS, Angina, CHF, Chest Wall, GI Disease, Lower Respiratory Infection - Diagnoses Provider Diagnoses: Atypical chest pain Discharge - Sign-Out/Discharge Documenting (check all that apply): Patient Departure - Discharge home Patient Received Moderate/Deep Sedation with Procedure: No - Discharge Plan Condition: Stable Disposition: HOME Patient Education Materials: Chest Pain (ED) Referrals: Abigail Pa MD [Primary Care Provider] - Additional Instructions: FOLLOW UP WITH YOUR PRIMARY CARE PROVIDER IN 2-3 DAYS. RETURN TO THE EMERGENCY DEPARTMENT FOR ANY WORSENING OR NEW SYMPTOMS. - Billing Disposition and Condition Condition: STABLE Disposition: Home - Attestation Statements Document Initiated by Desiree: Yes Documenting Scribe: Sarah Sesay Provider For Whom Desiree is Documenting (Include Credential): Dorian Owen MD Scribe Attestation: Sarah Nuñez scribed for Dorian Owen MD on 10/15/18 at 5078. Scribe Documentation Reviewed: Yes Provider Attestation: The documentation as recorded by the Sarah shane accurately reflects the service I personally performed and the decisions made by me, Dorian Owen MD Status of Scribe Document: Viewed
[2018-10-15 08:12] LABS: ABS Basophils 0.1 10^3/ul (0-0.2); ABS Eosinophils 0.2 10^3/ul (0-0.6); ABS Lymphocytes 1.2 10^3/ul (1.0-4.8); ABS Monocytes 0.6 10^3/ul (0-0.8); ABS Neutrophils 3.7 10^3/ul (1.5-7.7); ABS Nucleated RBC 0 10^3/ul; Eosinophil % 3.4 %; Hematocrit 40 % (33-41); Hemoglobin 13.4 g/dL (12.0-16.0); Lymphocyte % 21.2 %; Mean Corpuscular HGB Conc 33 g/dL (31-36); Mean Corpuscular Hemoglobin 32 pg (27-31); Mean Corpuscular Volume 96 fL (80-97); Mean Platelet Volume 9.8 fL (7.4-10.4); Nucleated Red Blood Cells % 0; Platelet Count 162 10^3/uL (150-450); Red Blood Count 4.17 10^6 /uL (3.70-4.87); Red Cell Distribution Width 14 % (10.5-15); White Blood Count 5.8 10^3/uL (3.5-10.8)
[2018-10-15 08:12] LABS: Urine Appearance Cloudy; Urine Bacteria Absent (Absent); Urine Bilirubin Negative (Negative); Urine Blood 1+ (Negative); Urine Color Straw; Urine Glucose Negative (Negative); Urine Ketones Negative (Negative); Urine Nitrite Negative (Negative); Urine Protein Negative (Negative); Urine Red Blood Cell Trace(0-2/hpf) (Absent); Urine Specific Gravity 1.002 (1.010-1.030); Urine Squamous Epithelial Cell Present (Absent); Urine Urobilinogen Negative (Negative); Urine White Blood Cell Absent (Absent)
[2018-10-15 08:23] LABS: Albumin 4.2 g/dL (3.2-5.2); Albumin/Globulin Ratio 1.6 (1-3); BUN/Creatinine Ratio 13.6 (8-20); Calcium 9.1 mg/dL (8.6-10.3); EGFR African American 117.2 (>60); EGFR Non-African American 96.8 (>60); Globulin 2.7 g/dL (2-4); Potassium 3.8 mmol/L (3.5-5.0); Total Bilirubin 0.5 mg/dL (0.2-1.0); Total Protein 6.9 g/dL (6.4-8.9)
[2018-10-15 08:29] LABS: CKMB ng/mL 1.3 ng/mL (0.6-6.3)
[2018-10-15 08:32] LABS: HCG Pregnancy 0.63 mIU/mL
[2018-10-15 09:02] LABS: TSH (Thyroid Stimulating Horm) 0.57 mcIU/mL (0.34-5.60)
[2018-10-15 09:04] VITALS: BP 110/61
== END 2018-10-15 09:03 | disposition home or self-care (01) ==
LOC: ED 06:51
DX: R07.89 Other chest pain (principal); E03.9 Hypothyroidism, unspecified; I05.0 Rheumatic mitral stenosis
CPT/HCPCS: 36415; 71045; 80053; 81003; 81015; 82550; 82553; 83605; 83735; 83880; 84443; 84484; 84702; 85025; 85730; 93005; 99282

== ENCOUNTER 2018-12-14 07:35 | Emergency (ER) | payer OTHER ==
[2018-12-14 10:00] VITALS: BP 116/65
--- NOTE | 2018-12-14 10:14 | UC ---
Complaint Female HPI - HPI Summary HPI Summary: 43-year-old female presents with onset of dysuria, frequency, urgency, and hematuria this morning. Denies fever, chills, abdominal pain, back or flank pain, nausea, vomiting, vaginal discharge, dyspareunia, or abnormal bleeding. - History Of Current Complaint Chief Complaint: UCGU Stated Complaint: URINARY ISSUE Time Seen by Provider: 12/14/18 09:59 Hx Obtained From: Patient Hx Last Menstrual Period: 12/03/18 Pain Intensity: 3 - Allergies/Home Medications Allergies/Adverse Reactions: Allergies Allergy/AdvReac Type Severity Reaction Status Date / Time No Known Allergies Allergy Verified 12/14/18 07:58 Home Medications: Home Medications ALPRAZolam TAB* [Xanax TAB*] 1 tab PO DAILY 12/14/18 [History Confirmed 12/14/18 ] Levothyroxine TAB* [Synthroid TAB*] 1 tab PO DAILY 12/14/18 [History Confirmed 12/14/18] Zolpidem TAB* [Ambien*] 1 tab PO DAILY 12/14/18 [History Confirmed 12/14/18] Zolpidem Tartrate 1 tab PO DAILY 12/14/18 [History Confirmed 12/14/18] buPROPion TAB* [Wellbutrin TAB*] 37.5 mg PO BID 12/14/18 [History Confirmed 10/29] PMH/Surg Hx/FS Hx/Imm Hx Endocrine History: Hypothyroidism Cardiovascular History: Other - Mitral valve stenosis Psychological History: Anxiety - Surgical History Surgical History: Yes Surgery Procedure, Year, and Place: mvstenosis [facility]vularplasty @ [facility] - Family History Known Family History: Positive: Hypertension, Diabetes - Social History Occupation: Employed Full-time Lives: With Family Alcohol Use: Weekly Alcohol Amount: 2 - 3 drinks Substance Use Type: None Smoking Status (MU): Never Smoked Tobacco - Immunization History Most Recent Influenza Vaccination: 04/21/18 Most Recent Pneumonia Vaccination: none Review of Systems All Other Systems Reviewed And Are Negative: Yes Constitutional: Negative: Fever, Chills Respiratory: Positive: Negative Cardiovascular: Positive: Negative Gastrointestinal: Negative: Abdominal Pain, Vomiting, Diarrhea, Nausea Genitourinary: Positive: Dysuria, Hematuria, Frequency, Urgency. Negative: Vaginal/Penile Burning, Vaginal/Penile Itching, Vaginal/Penile Discharge, Abnormal Bleeding Musculoskeletal: Positive: Negative Neurological: Positive: Negative Is Patient Immunocompromised?: No Physical Exam - Summary Physical Exam Summary: GENERAL APPEARANCE: Well developed, well nourished, alert and cooperative, and appears to be in no acute distress. CARDIAC: Normal S1 and S2. No S3, S4 or murmurs. Rhythm is regular. There is no peripheral edema, cyanosis or pallor. Extremities are warm and well perfused. Capillary refill is less than 2 seconds. Peripheral pulses intact. LUNGS: Clear to auscultation without rales, rhonchi, wheezing or diminished breath sounds. ABDOMEN: Positive bowel sounds. Soft, nondistended, nontender. No guarding or rebound. No masses or hepatosplenomegally. No CVA tenderness. MUSKULOSKELETAL: ROM intact to all extremities. No joint erythema or tenderness. Normal muscular development. Normal gait. SKIN: Skin normal color, texture and turgor with no lesions or eruptions. Triage Information Reviewed: Yes Vital Signs: Initial Vital Signs Temp 98 F 12/14/18 07:54 Pulse 78 12/14/18 07:54 Resp 16 12/14/18 07:54 BP 103/67 12/14/18 07:54 Pulse Ox 100 12/14/18 07:54 Vital Signs Reviewed: Yes Complaint Female Dx - Course Course Of Treatment: 43-year-old female presents with onset of dysuria, frequency, urgency, and hematuria this morning. Denies fever, chills, abdominal pain, back or flank pain, nausea, vomiting, vaginal discharge, dyspareunia, or abnormal bleeding. Afebrile. Vital signs stable. Exam was overall unremarkable. [id number] urinalysis showed 1+ leukocyte esterase and 2+ blood. Urine culture is pending. Will treat empirically for urinary tract infection with Macrobid 100 mg twice a day 5 days and provider with a 2 day course of Pyridium 100 mg 3 times a day for the discomfort. Patient is to return or follow-up with a primary care provider in 3-5 days if symptoms are not improving. Anticipatory guidance warning symptoms were reviewed with the patient. Verbalizes understanding and agrees with plan of care. - Differential Dx/Diagnosis Differential Diagnosis/HQI/PQRI: Urinary Tract Infection Provider Diagnosis: UTI (urinary tract infection) Discharge - Sign-Out/Discharge Documenting (check all that apply): Patient Departure All imaging exams completed and their final reports reviewed: No Studies - Discharge Plan Condition: Stable Disposition: HOME Prescriptions: Nitrofurantoin Monohyd/M-Cryst [Macrobid 100 mg Capsule] 100 mg PO BID #10 cap Phenazopyridine TAB* [Pyridium 100 mg TAB*] 100 mg PO TID #6 tab Patient Education Materials: Urinary Tract Infection in Women (ED) Referrals: Abigail Pa MD [Primary Care Provider] - 3 Days Additional Instructions: Your urine test in the clinic today is suggestive of a urinary tract infection. We will start you on an antibiotic to treat for the infection. We will also send a urine culture today to see what bacteria grow out and make sure the antibiotic you were prescribed is appropriate to treat the infection. It will take 48-72 hours to get these results. We will contact you if there is any change in your treatment plan. Start Macrobid 100 mg 1 tab twice a day for 5 days. Take Pyridium 1 tablet every 8 hours for next 2 days to help with the discomfort. This medication will turn your urine an orange color. Drink plenty of fluids. To help prevent urinary tract infections: 1) Be sure to wipe from front to back. 2) Urinate immediately after any sexual intercourse. 3) Avoid taking bubble baths. Follow up with your primary care provider in 3-5 days if symptoms persist. Seek immediate medical attention in the emergency room if you develop fever greater than 100.5 F, have severe abdominal pain, persistent vomiting, or any worsening of symptoms. - Billing Disposition and Condition Condition: STABLE Disposition: Home
--- NOTE | 2018-12-15 15:50 | UC ---
- Progress Note Progress Note: notify patient no UTI stop antibiotic recheck if still symptomatic Course/Dx - Diagnoses Provider Diagnoses: UTI (urinary tract infection) Discharge - Sign-Out/Discharge Documenting (check all that apply): Post-Discharge Follow Up All imaging exams completed and their final reports reviewed: No Studies - Discharge Plan Condition: Stable Disposition: HOME Prescriptions: Nitrofurantoin Monohyd/M-Cryst [Macrobid 100 mg Capsule] 100 mg PO BID #10 cap Phenazopyridine TAB* [Pyridium 100 mg TAB*] 100 mg PO TID #6 tab Patient Education Materials: Urinary Tract Infection in Women (ED) Referrals: Abigail Pa MD [Primary Care Provider] - 3 Days Additional Instructions: Your urine test in the clinic today is suggestive of a urinary tract infection. We will start you on an antibiotic to treat for the infection. We will also send a urine culture today to see what bacteria grow out and make sure the antibiotic you were prescribed is appropriate to treat the infection. It will take 48-72 hours to get these results. We will contact you if there is any change in your treatment plan. Start Macrobid 100 mg 1 tab twice a day for 5 days. Take Pyridium 1 tablet every 8 hours for next 2 days to help with the discomfort. This medication will turn your urine an orange color. Drink plenty of fluids. To help prevent urinary tract infections: 1) Be sure to wipe from front to back. 2) Urinate immediately after any sexual intercourse. 3) Avoid taking bubble baths. Follow up with your primary care provider in 3-5 days if symptoms persist. Seek immediate medical attention in the emergency room if you develop fever greater than 100.5 F, have severe abdominal pain, persistent vomiting, or any worsening of symptoms. - Billing Disposition and Condition Condition: STABLE Disposition: Home
== END 2018-12-14 10:25 | disposition home or self-care (01) ==
LOC: UCEAST 07:35
DX: N39.0 Urinary tract infection, site not specified (principal); R31.9 Hematuria, unspecified; E03.9 Hypothyroidism, unspecified; F41.9 Anxiety disorder, unspecified
CPT/HCPCS: 81003; 87086; 99212; G0463

== ENCOUNTER 2019-06-30 15:03 | Emergency (ER) | payer OTHER ==
[2019-06-30 15:37] LABS: ABS Basophils 0.1 10^3/ul (0-0.2); ABS Eosinophils 0.1 10^3/ul (0-0.6); ABS Lymphocytes 1.7 10^3/ul (1.0-4.8); ABS Monocytes 0.8 10^3/ul (0-0.8); ABS Neutrophils 4.3 10^3/ul (1.5-7.7); Eosinophil % 1.2 %; Hematocrit 39 % (35-47); Hemoglobin 13.3 g/dL (12.0-16.0); Lymphocyte % 24.8 %; Mean Corpuscular HGB Conc 34 g/dL (31-36); Mean Corpuscular Hemoglobin 33 pg (27-31); Mean Corpuscular Volume 98 fL (80-97); Nucleated Red Blood Cells % 0.1; Platelet Count 182 10^3/uL (150-450); Red Blood Count 3.99 10^6 /uL (3.70-4.87); Red Cell Distribution Width 12 % (10-15)
--- NOTE | 2019-06-30 15:37 | ED ---
Palpitations / Dysrhythmia - HPI Summary HPI Summary: This pt is a 44 y/o female, with hx of mitral valve stenosis repair, presenting to [facility] via EMS c/o palpitations today. Pt reports she was sitting at her desk when she began to feel palpitations, characterized as heart racing. She notes when she got up from her desk to call her friend she felt lightheaded. Denies feeling of passing out or syncope. Pt states at the same time she felt chest pressure, left arm pain, and throat pressure. EMS report her heart rate was in the 170s and they administered adenosine with relief and heart rate in the 90s. Currently reports feeling better. Denies difficulty breathing or chest pain now. Pt reports she has had episodes of palpitations in the past where she can take a deep breath and can calm herself down to the point where her palpitations resolve. She notes today her palpitations persisted despite taking deep breaths. PMHx: mitral valve stenosis with repair, untreated strep infection as a child ( rheumatic heart disease). Her measurement coordinator is Dr. Jimenez and was told she would have intermittent arrhythmias. - History of Current Complaint Chief Complaint: EDDysrhythmPalp Time Seen by Provider: 06/30/19 15:18 Hx Obtained From: Patient Onset/Duration: Still Present Severity Initially: Moderate Severity Currently: None Character: Fast Aggravating: Nothing Alleviating: Other - EMS treatment Associated Signs & Symptoms: Lightheadedness, Chest Pain - Allergy/Home Medications Allergies/Adverse Reactions: Allergies Allergy/AdvReac Type Severity Reaction Status Date / Time No Known Allergies Allergy Verified 12/14/18 07:58 Home Medications: Home Medications Amoxicillin PO (*) [Amoxicillin 500 MG CAP*] 200 mg PO ONCE 06/30/19 [History Confirmed 06/30/19] Eletriptan (NF) [Relpax (Nf)] 20 mg PO DAILY PRN MDD 2 tabs 06/30/19 [History Confirmed 06/30/19] Lifitegrast (NF) [Xiidra (NF)] 1 drop BOTH EYES DAILY PRN 06/30/19 [History Confirmed 06/30/19] Liothyronine TAB* [Cytomel TAB*] 2.5 mcg PO DAILY 06/30/19 [History Confirmed ] Naproxen [Naproxen 500 mg tab] 500 mg PO DAILY PRN 06/30/19 [History Confirmed 06/30/19] Prochlorperazine TAB* [Compazine Tab*] 10 mg PO DAILY PRN MDD 40 06/30/19 [ History Confirmed 06/30/19] PMH/Surg Hx/FS Hx/Imm Hx Endocrine/Hematology History: Reports: Hx Thyroid Disease - hypothyroid Denies: Hx Diabetes Cardiovascular History: Denies: Hx Hypertension Respiratory History: Denies: Hx Asthma History: Denies: Hx Renal Disease Sensory History: Denies: Hx Contacts or Glasses, Hx Hearing Aid Opthamlomology History: Denies: Hx Contacts or Glasses Neurological History: Reports: Hx Migraine - Cancer History Hx Chemotherapy: No Hx Radiation Therapy: No - Surgical History Surgical History: Yes Surgery Procedure, Year, and Place: mvstenosis [facility]ular[facility] @ [facility] - Immunization History Date of Tetanus Vaccine: utd Date of Influenza Vaccine: 04/2018 Infectious Disease History: No Infectious Disease History: Denies: Traveled Outside the [place] in Last 30 Days - Family History Known Family History: Positive: Hypertension, Diabetes - Social History Alcohol Use: Weekly Alcohol Amount: 5 glasses wine/week Hx Substance Use: No Substance Use Type: Reports: None Hx Tobacco Use: No Smoking Status (MU): Never Smoked Tobacco Review of Systems Negative: Fever ENT: Other - POSITIVE: throat pressure Positive: Palpitations, Chest Pain - pressure Musculoskeletal: Other - POSITIVE: left arm pain Neurological: Other - POSITIVE: lightheadedness Negative: Syncope All Other Systems Reviewed And Are Negative: Yes Physical Exam - Summary Physical Exam Summary: Constitutional: Well-developed, Well-nourished, Alert. (-) Distressed. Normal blood pressure. Skin: Warm, Dry HENT: Normocephalic; Atraumatic Eyes: Conjunctiva normal Neck: Musculoskeletal ROM normal neck. (-) JVD, (-) Stridor, (-) Tracheal deviation Cardio: Rhythm regular, rate normal, S1 murmur very audible by stethoscope, Intact distal pulses; The pedal pulses are 2+ and symmetric. Radial pulses are 2 + and symmetric. Pulmonary/Chest wall: Effort normal. (-) Respiratory distress, (-) Wheezes, (-) Rales Abd: Soft, (-) tenderness, (-) Distension, (-) Guarding, (-) Rebound Musculoskeletal: (-) Edema. Good pulses throughout. Neuro: Alert, Oriented x3 Psych: Mood and affect Normal Triage Information Reviewed: Yes Vital Signs On Initial Exam: Initial Vitals Temp Pulse Resp BP Pulse Ox 98.3 F 88 18 109/66 100 06/30/19 15:11 06/30/19 15:11 06/30/19 15:11 06/30/19 15:11 06/30/19 15:11 Vital Signs Reviewed: Yes Procedures - Sedation Patient Received Moderate/Deep Sedation with Procedure: No Diagnostics - Vital Signs Vital Signs Temp Pulse Resp BP Pulse Ox 06/30/19 15:11 98.3 F 88 18 109/66 100 - Laboratory Result Diagrams: 06/30/19 15:28 06/30/19 15:28 Lab Statement: Any lab studies that have been ordered have been reviewed, and results considered in the medical decision making process. - EKG 15:17 Cardiac Rate: NL - at 88 bpm EKG Rhythm: Sinus Rhythm Summary of EKG Findings: EKG at 15:17 shows normal sinus rhythm at a rate of 88 bpm. There is RSR' vs incomplete RBBB, most obvious in leads V1 and V2. In V3 specifically she has a questionable delta wave. ST and T waves are normal. No STEMI. Re-Evaluation - Re-Evaluation First Eval Re-Evaluation Time: 17:50 Comment: Will repeat troponin at this time, which is 4 hours from her onset. If troponin increases then we will admit pt. If troponin is negative, then we will consult with Dr. Jimenez. Second Eval Re-Evaluation Time: 18:04 Comment: Discussed discharge plans with patient. Course/Dx - Course Assessment/Plan: Pt is a 44 y/o female, with hx of mitral valve stenosis repair , presenting to [facility] via EMS c/o palpitations characterized as fast heart rate and chest pressure today. EMS reported heart rate in the 170s and administered adenosine with relief and heart rate in the 90s. Lab unremarkable except for potassium of 3.2. Discussed with Dr. Owens, measurement coordinator donor support technician, who reports Dr. Jimenez will call patient for a follow up appointment. Dr. Owens recommends giving patient PO potassium due to low potassium of 3.2 today and thinks this might be part of it. Additionally, patient's discomfort might also be due to the mitral valve stenosis and fast heart rate. Patient is asymptomatic now and Dr. Owens is comfortable with discharging patient home. He recommends Metoprolol Succinate 25 mg daily and extra potassium every day. Patient will receive 40 meq of potassium chloride in the ED. Will prescribe the patient Metoprolol succinate 25 mg for 14 days and potassium chloride 20 meq for 14 days. Second troponin is negative. Patient will be discharged home with follow up from Dr. Jimenez. She was instructed to return to the ED for any new or worsening symptoms. Dx: palpitations, presumed SVT. - Diagnoses Provider Diagnoses: Palpitations - Physician Notifications Discussed Care Of Patient With: Ishmael Owens Time Discussed With Above Provider: 17:52 Instructed by Provider To: Other - Discussed with Dr. Owens, measurement coordinator donor support technician, who reports Dr. Jimenez will call patient for a follow up appointment. Dr. Owens recommends PO potassium due to low potassium and thinks this might be part of it. Patient's discomfort might be due to the mitral valve stenosis and fast heart rate. Patient is asymptomatic now and he is comfortable with discharging patient home. Discharge ED - Sign-Out/Discharge Documenting (check all that apply): Patient Departure - Discharge home - Discharge Plan Condition: Stable Disposition: HOME Prescriptions: Metoprolol Succinate 25 mg PO DAILY 14 Days #14 tab.er.24h Potassium Chlor TAB* [Potassium Chlor TAB 20 MEQ*] 20 meq PO DAILY 14 Days #14 tab.er Patient Education Materials: Supraventricular Tachycardia (ED), Heart Palpitations (ED) Referrals: Rose Lorenzo MD [Primary Care Provider] - Roger Jimenez MD [Medical Doctor] - Additional Instructions: Please follow up with Dr. Jimenez, your measurement coordinator, who will call you for an appointment. If you don't hear from his office please call them and follow up with him within 1 week. RETURN TO THE ED FOR ANY WORSENING OR NEW SYMPTOMS. - Attestation Statements Document Initiated by Scribe: Yes Documenting Scribe: Sarah Sesay Provider For Whom Desiree is Documenting (Include Credential): Isidro Bañuelos MD Scribe Attestation: Sarah Nuñez, scribed for Isidro Bañuelos MD on 06/30/19 at 1908. Status of Scribe Document: Ready
[2019-06-30 15:46] LABS: INR 1.02 (0.82-1.09)
[2019-06-30 15:56] LABS: Troponin I 0.01 ng/mL (<0.03)
[2019-06-30 16:15] LABS: Albumin 4.2 g/dL (3.2-5.2); Albumin/Globulin Ratio 1.7 (1-3); BUN/Creatinine Ratio 15.2 (8-20); Calcium 9.2 mg/dL (8.6-10.3); EGFR African American 94.8 (>60); EGFR Non-African American 78.3 (>60); Globulin 2.5 g/dL (2-4); Potassium 3.2 mmol/L (3.5-5.0); Total Bilirubin 0.4 mg/dL (0.2-1.0); Total Protein 6.7 g/dL (6.4-8.9)
--- OUTSIDE RECORDS SUMMARY | 2019-06-30 16:23 | XMS REPORT | Continuity of Care Document ---
:1975 External Reference #:[id number] Author Name Tobias Lott, OD Address [address] [place] [address] Problems Active Problems Provider Date Tear film insufficiency Tobias Vasques O.D. Onset: 11/22/2013 Anisocoria Tobias Vasques O.D. 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 Onset: 05/25/2014 Keratoconjunctivitis sicca, not specified as Tobias Vasques O.D. Onset: Sjogren's Social History Type Date Description Comments Sex Unknown ETOH Use Occasionally consumes alcohol Tobacco Use Start: Unknown Patient has never smoked Smoking Status Reviewed: 06/21/19 Patient has never smoked Allergies, Adverse Reactions, Alerts Description No Known Drug Allergies Medications Active Medications SIG Qnty Indications Ordering Date Provider Xiidra 1gtt both eyes 60units Tobias Lott, 10/26/2018 5% Solution twice a day OD Naproxen Abigail Curran, 500mg Tablets Synthroid Abigail Curran, 50mcg Tablets Relpax Abigail Curran, 20mg Tablets Bupropion HCL Take 1 Tablet By Unknown 75mg Tablets Mouth Every Day Alprazolam Take 1 Tablet By Unknown 0.5mg Tablets Mouth Up To 4 Times Per Day as Needed For Anxiety Exacerbation Montelukast Sodium Chew 1 To 2 Tablet Unknown 5mg By Mouth Every Day Chewtabs as Needed For Allergies Prochlorperazine Take 1 Tablet By Unknown Maleate Mouth Every 8 10mg Tablets Hours as Needed For Nausea Zolpidem Tartrate Unknown 5mg Tablets Levothyroxine-Liothyron Unknown ine 15mg Tablets Amoxicillin Unknown 250mg Capsules Immunizations Description No Information Available Vital Signs Date Vital Result Comment 06/21/2019 3:09pm Intraocular Pressure Right Eye 15 mmHg Intraocular Pressure Left Eye 15 mmHg 06/18/2018 8:46am Intraocular Pressure Right Eye 15 mmHg Intraocular Pressure Left Eye 15 mmHg Results Description No Information Available Procedures Date Code Description Status 06/21/2019 92176 Refraction Completed 06/21/2019 92033 Eye Exam Est Intermediate Completed Medical Devices Description No Information Available Encounters Description No Information Available Assessments Date Code Description Provider 06/21/2019 H52.13 Myopia, bilateral Tobias Lott, OD 06/21/2019 H04.123 Dry eye syndrome of bilateral lacrimal glands Tobias Lott, OD Plan of Treatment 06/21/2019 - Tobias Lott, ODH52.13 Myopia, [id number] Dry eye syndrome of bilateral lacrimal glandsFollow up:yearly full, sooner PRN Functional Status Description No Information Available Mental Status Description No Information Available Referrals Description No Information Available
--- OUTSIDE RECORDS SUMMARY | 2019-06-30 16:23 | XMS REPORT | Continuity of Care Document ---
:1975 External Reference #:[id number] Author Name Rose Lorenzo MD Address [address] [place] [address] Problems Active Problems Provider Date Adult health examination Onset: 02/09/2019 Inactive Problems Urticaria Onset: 02/18/2019 Inactive: 02/18/2019 Allergic reaction Onset: 02/18/2019 Inactive: 02/18/2019 Gynecologic examination Onset: 02/09/2019 Inactive: 02/09/2019 Underweight Onset: 02/09/2019 Inactive: 02/09/2019 Social History Type Date Description Comments Sex Unknown Tobacco Use Start: Unknown Patient has never smoked Smoking Status Reviewed: 06/24/19 Patient has never smoked Allergies, Adverse Reactions, Alerts Active Allergies Reaction Severity Comments Date Ciprofloxacin Nausea 03/18/2019 PCN Nausea 03/18/2019 Medications Active Medications SIG Qnty Indications Ordering Date Provider Eletriptan Hydrobromide 1 tab by mouth as Rose Lorenzo, 06/24/2019 directed 20mg Tablets Zolpidem Tartrate 1 tab daily at 30tabs Cynthia 04/19/2019 5mg bedtime as needed Karnow, DO Tablets Alprazolam up to 3/day prn Unknown 12/15/2018 0.5mg Tablets Oral Amoxicillin Oral; 4 Unknown 12/15/2018 500mg Capsules capsules 1 hour prior to dental or GI procedure Bupropion HCL 1/2 tab up to 30tabs Jaquelin Euceda, [employer] 12/15/2018 75mg Tablets 2/day oral Cranberry Oral Unknown 12/15/2018 Powder Glucosamine Chondroitin Unknown 12/15/2018 Advanced Therapy Tablets Levothyroxine Sodium Oral Unknown 12/15/2018 50mcg Tablets Liothyronine Sodium 1/2 tab daily Unknown 12/15/2018 5mcg Oral Tablets Montelukast Sodium prn Oral Unknown 12/15/2018 5mg Chewtabs Naproxen prn Oral Unknown 12/15/2018 500mg Tablets Prochlorperazine Oral Unknown 12/15/2018 Maleate 10mg Tablets Xiidra Ophthalmic Unknown 12/15/2018 5% Solution History Medications Loratadine 1 daily Oral 30tabs Unknown 02/18/2019 - 06/20/2019 10mg Tablets Prednisone 1 daily Oral 5tabs Unknown 02/18/2019 - 02/23/2019 20mg Tablets Immunizations CPT Code Status Date Vaccine Lot # [id number] Given 04/12/2018 Flu < 65 years [id number] Given 01/21/2013 Tdap - Boostrix/Adacel Vital Signs Date Vital Result Comment 06/24/2019 11:27am BP Systolic 108 mmHg BP Diastolic 68 mmHg Weight 119.00 lb Heart Rate 87 /min Body Temperature 98.4 F O2 % BldC Oximetry 99 % 02/18/2019 2:57pm BP Systolic 118 mmHg Heart Rate 82 /min Body Temperature 98.7 F O2 % BldC Oximetry 95 % Results Test Acquired Facility Test Result H/L Range Note Date Syphilis Igg 02/09/2019 N2N/CCD Import Syphilis Igg Negative Negative 10 Yr CHD Risk 02/09/2019 N2N/CCD Import 10 Yr CHD Risk 0.2% [facility] 02/09/2019 N2N/CCD Import [place] 02/09/19 HIV Test Offered 02/09/2019 N2N/CCD Import HIV Test Offered Accepted and ordered Cholesterol 02/02/2019 N2N/CCD Import Cholesterol 180 mg/dL Creatinine 02/02/2019 N2N/CCD Import Creatinine 0.75 mg/dL 0.51-0.95 mg/dL GFR Afr Amer 02/02/2019 N2N/CCD Import GFR Afr Amer 100.7 _ >60 GFR Non Afr Amer 02/02/2019 N2N/CCD Import GFR Non Afr Amer 83.2 _ >60 HDL Cholesterol 02/02/2019 N2N/CCD Import HDL Cholesterol 103.6 mg/dL LDL Cholesterol 02/02/2019 N2N/CCD Import LDL Cholesterol 66 mg/dL Triglycerides 02/02/2019 N2N/CCD Import Triglycerides 54 mg/dL TSH 02/02/2019 N2N/CCD Import TSH 0.59 0.34-5.60 mcIU/mL mcIU/mL 10 Yr CHD Risk 02/02/2019 N2N/CCD Import 10 Yr CHD Risk ... Lipids Location 02/02/2019 N2N/CCD Import Lipids Location Lipids done at [facility] Procedures Date Code Description Status 02/09/2019 20940 Admin Patient Focused Health Risk Assessment Instrument Completed Medical Devices Description No Information Available Encounters Type Date Location Provider Dx Diagnosis Office Visit 06/24/2019 [facility] Main Rose Lorenzo MD R19.5 Other fecal 11:30a abnormalities Assessments Date Code Description Provider 06/24/2019 R19.5 Other fecal abnormalities Rose Lorenzo MD Plan of Treatment No Information Available Functional Status Description No Information Available Mental Status Description No Information Available Referrals Refer to Dr Reason for Referral Status Appt Date Yulisa Orozco Small amounts of bright bright red blood in Created 00/ stool with no evidence on exam of hemorrhoids or anal fissures. [facility] [place] [address] [phone]
[2019-06-30] MEDS: Potassium Chlor TAB* 20 MEQ TAB.ER PO ONE (18:03)
[2019-06-30 19:13] VITALS: BP 114/62
== END 2019-06-30 19:13 | disposition home or self-care (01) ==
LOC: ED 15:03
DX: R00.2 Palpitations (principal); E03.9 Hypothyroidism, unspecified; Z95.2 Presence of prosthetic heart valve; Z79.890 Hormone replacement therapy; Z79.899 Other long term (current) drug therapy
CPT/HCPCS: 36415; 80053; 84484; 85025; 85610; 93005; 99282; A9270-GY